=== PATIENT | female | born 1950 | race Caucasian/White ===

== ENCOUNTER → 2016-08-24 | Outpatient (CLI) | payer OTHER ==
--- NOTE | 2016-08-24 20:26 | WWHP ---
CHIEF COMPLAINT: Patient is here for her routine gynecologic exam. HPI: This is a 66-year-old, G2, P2-0-0-1 with an LMP of 1994. She states she did notice a small amount of vaginal spotting 2 weeks ago. She states it was a very thin red streaking on tissue when she wiped. She states she has not had any more bleeding since then. She believes it was from the vagina and not from the rectum. She denies any rectal bleeding. She says this was not associated with sexual intercourse and she did not have any cramping. 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 History of thrombocytopenia. MEDICATIONS: She takes a blood pressure medication b.i.d. but she does not know the name of the medication. Also Chauvin b.i.d., morphine 15 mg q.h.s. ALLERGIES: No known drug allergies. PAST SURGICAL HISTORY: section x2. Femur surgery after a fall in 2011 and colonoscopy 2009. PAST SENIOR PASTOR HISTORY: She has been menopausal since 1994 and has no history of STDs in the past. SOCIAL HISTORY: She denies tobacco and drug use. She does have a history of alcohol abuse in the past with resulting cirrhosis. She states she quit many years ago. She is considered disabled and has been since 1971. FAMILY HISTORY: Daughter had a neuroblastoma at age 8 and from this. She has a sister who had breast cancer. Father had diabetes. Mother had atrial fibrillation and hypertension. REVIEW OF SYSTEMS: She has gained about 14 pounds over the last 3 years. She denies respiratory, cardiac, or GI problems. PHYSICAL EXAM: Blood pressure 156/79. Height 5 feet 8-1/2 inches. Weight 150 pounds. Temperature 98.2, pulse 73. This is a well-developed, well-nourished white female who is alert and oriented x3 in no acute distress. HEENT is within normal limits. NECK: Supple without mass or thyromegaly. CHEST AND LUNGS: Clear to auscultation. HEART: Regular rate and rhythm. Breasts are without mass or discharge. Axillary exam is negative for adenopathy. BACK: Negative for CVA tenderness. ABDOMEN: Soft, nontender, without palpable masses. PELVIC EXAM: External genitalia reveals mild to moderate atrophy without lesions. Vagina, there is a small amount of dark yellow mucus in the vagina. There is no odor noted. There is no evidence of prolapse. The cervix appears normal, but somewhat stenotic secondary to atrophy. The uterus is midposition small, nongravid size and nontender. There are no palpable adnexal masses or tenderness. Rectovaginal exam is negative for mass or tenderness but is Hemoccult-positive. The stool does appear somewhat dark. EXTREMITIES: Nontender. IMPRESSION: 1. A 66-year-old menopausal female with a small amount of brief spotting 2 weeks ago from the vagina with no significant physical findings at this time. She has had no bleeding since then. 2. Heme positive stools on exam today. PLAN: 1. Pap smear was performed. 2. Self breast examination was discussed. 3. Patient is due for mammogram and a slip was given to patient for this. 4. Pelvic ultrasound will be scheduled to further evaluate her small postmenopausal spotting. If thickened endometrium or recurrence of her vaginal bleeding consider endometrial sampling of tissue. 5. The patient will be referred to Dr. Dorian Menendez, her general surgeon, for evaluation of the heme-positive stool and possible colonoscopy and possible upper endoscopy. 6. She will return in one year.
== END | disposition home or self-care (01) ==
LOC: WWCWWP 11:32
PROVIDERS: ATTEND Obstetrics & Gynecology
DX: Z53.9 Procedure and treatment not carried out, unspecified reason (principal)

== ENCOUNTER 2019-01-05 17:44 | Emergency (ER) | payer MEDICARE, OTHER ==
[2019-01-05 18:00] VITALS: BP 156/78; PULSE 76; RESP 18; TEMP 97.8
[2019-01-05] MEDS ORDERED: HYDROcodone/APAP 5-325MG 1 EACH TAB PO STA (18:06)
--- NOTE | 2019-01-05 18:22 | ED ---
Upper Extremity HPI - General Chief Complaint: Extremity Injury, Upper Stated Complaint: rt elbow injury Time Seen by Provider: 01/05/19 18:00 Source: patient, RN notes reviewed, old records reviewed Mode of arrival: ambulatory Limitations: physical limitation - History of Present Illness Initial Comments: This is a 68-year-old female complaining of significant right elbow pain. Patient had right elbow injury right elbow on the door frame. Patient states she just walking no other issues. Patient just complaining of pain. Patient denies any other trauma. No significant neurological injury. Able to move her hand without difficulty. She states it is painful when she moves her elbow through range of motion both extension and flexion Complaint: Injury to:: right, elbow -: minutes(s) Other Extremity Injury: Elbow: Right Handedness: right Place: home Severity scale (1-10): 2 Improves With: none Worsens With: none Associated Symptoms: denies other symptoms - Related Data Home Medications Medication Instructions Recorded Confirmed HYDROcodone/APAP 10-325MG [Gillett 1 tab PO Q6H PRN 04/28/14 02/02/16 10] Montelukast [Singulair] 10 mg PO HS 04/28/14 02/02/16 Promethazine [Phenergan] 25 mg PO BID PRN 04/28/14 02/02/16 Bisoprolol-Hctz 5-6.25 mg [Ziac 1 tab PO DAILY 02/02/16 02/02/16 5-6.25] Docusate [Colace] 100 mg PO DAILY 02/02/16 02/02/16 Allergies Allergy/AdvReac Type Severity Reaction Status Date / Time No Known Allergies Allergy Verified 01/05/19 18:00 Review of Systems ROS Statement: Those systems with pertinent positive or pertinent negative responses have been documented in the HPI. ROS Other: All systems not noted in ROS Statement are negative. Past Medical History Past Medical History: Cancer, Hypertension, Liver Disease, Musculoskeletal Disorder Additional Past Medical History / Comment(s): HX OF CIRRHOSIS, ASCITES, CHRONIC BACK PAIN, SINUS PROBLEMS. STATES BLOOD COUNTS LOW DUE TO CIRRHOSIS. VERTIGO. BREAST CA. History of Any Multi-Drug Resistant Organisms: None Reported Past Surgical History: Section, Orthopedic Surgery Additional Past Surgical History / Comment(s): X2, SURGERY RT FEMUR WITH HARDWARE. Past Anesthesia/Blood Transfusion Reactions: No Reported Reaction, Motion Sickness Past Psychological History: No Psychological Hx Reported Smoking Status: Never smoker Past Alcohol Use History: None Reported Past Drug Use History: None Reported - Past Family History Sister(s) Family Medical History: Cancer Additional Family Medical History / Comment(s): BREAST CANCER Daughter(s) Family Medical History: Cancer Additional Family Medical History / Comment(s): NEOBLASTOMA General Exam Limitations: physical limitation General appearance: alert, in no apparent distress Head exam: Present: atraumatic, normocephalic, normal inspection Eye exam: Present: normal appearance, PERRL, EOMI. Absent: scleral icterus, conjunctival injection, periorbital swelling ENT exam: Present: normal exam, mucous membranes moist Neck exam: Present: normal inspection. Absent: tenderness, meningismus, lymphadenopathy Respiratory exam: Present: normal lung sounds bilaterally. Absent: respiratory distress, wheezes, rales, rhonchi, stridor Cardiovascular Exam: Present: regular rate, normal rhythm, normal heart sounds. Absent: systolic murmur, diastolic murmur, rubs, gallop, clicks GI/Abdominal exam: Present: soft, normal bowel sounds. Absent: distended, tenderness, guarding, rebound, rigid Extremities exam: Present: normal inspection, full ROM, tenderness (R elbow pain, dec ROM), normal capillary refill. Absent: pedal edema, joint swelling, calf tenderness Back exam: Present: normal inspection Neurological exam: Present: alert, oriented X3, CN II-XII intact Psychiatric exam: Present: normal affect, normal mood Skin exam: Present: warm, dry, intact, normal color. Absent: rash Course Vital Signs 01/05/19 17:58 Temperature 97.8 F Pulse Rate 76 Respiratory 18 Rate Blood Pressure 156/78 O2 Sat by Pulse 95 Oximetry - Reevaluation(s) Reevaluation #1: 01/05/19 19:08 Medical records reviewed Reevaluation #2: 01/05/19 19:08 Patient has adequate pain control Procedures - Orthopedic Splinting/Casting Injury #1 Side: right Upper Extremity Injury Location: elbow Upper Extremity Immobilizer: sling/shoulder immobilizer, posterior splint Medical Decision Making - Medical Decision Making 68 female who presents today for evaluation of right elbow pain positive right elbow fracture fractures splinted in sling. Patient can be discharged home - Radiology Data Radiology results: report reviewed (X-ray shows nondisplaced radial head fracture), image reviewed Disposition Clinical Impression: Elbow fracture, right Disposition: HOME SELF-CARE Condition: Good Instructions (If sedation given, give patient instructions): Elbow Fracture (ED) Is patient prescribed a controlled substance at d/c from ED?: No Referrals: Jhonatan Katz MD [Primary Care Provider] - 1-2 days
--- NOTE | 2019-01-05 18:50 | XR ---
EXAMINATION TYPE: XR elbow complete RT DATE OF EXAM: 01/05/2019 COMPARISON: None HISTORY: Pain TECHNIQUE: Three-view right elbow FINDINGS: There is elevation of the anterior and posterior fat pads. A radial head fracture is eviden t. The olecranon and humerus have normal orientation. Radius aligns normally with the humerus. IMPRESSION: 1. Nondisplaced fracture radial head with intra-articular extension. This appears to cross the super ior border of the radial head.
== END 2019-01-05 19:18 | disposition home or self-care (01) ==
LOC: EC 17:44
DX: S52.124A Nondisplaced fracture of head of right radius, initial encounter for closed fracture (principal); G89.29 Other chronic pain; M54.9 Dorsalgia, unspecified; K74.60 Unspecified cirrhosis of liver; I10 Essential (primary) hypertension; Z79.899 Other long term (current) drug therapy; Z85.3 Personal history of malignant neoplasm of breast; W22.09XA Striking against other stationary object, initial encounter; Y93.89 Activity, other specified
CPT/HCPCS: 29105; 99284

== ENCOUNTER → 2021-06-14 | Outpatient (CLI) | payer MEDICARE, OTHER ==
--- NOTE | 2021-06-15 10:47 | MM ---
Reason for exam: screening (asymptomatic). Last mammogram was performed 6 years and 4 months ago. History: Patient is postmenopausal and has history of bilateral breast cancer at age 62. Family history of breast cancer in sister at age 50. Benign MG pre op needle loc RT of the right breast, April 30, 2014. Malignant right breast needle localzation of both breasts, July 11, 2012. Benign right breast needle localzation of both breasts, December 23, 2011. Cancelled Right Mammotome of the right breast, December 19, 2011. Benign excisional biopsy of the right breast, 1979. Physical Findings: A clinical breast exam by your physician is recommended on an annual basis and results should be correlated with mammographic findings. MG 3D Screening Mammo W/Cad Bilateral CC and MLO view(s) were taken. Prior study comparison: February 11, 2015, bilateral MG 3d diag mammo w/cad BRIGID. December 11, 2014, right breast MG diagnostic mammo RT w CAD. Finding: There are typically benign new, fine, grouped/clustered calcifications in the left breast, 9cm from the nipple. New finding since February 11, 2015 and December 11, 2014. ASSESSMENT: Incomplete: need additional imaging evaluation, BI-RAD 0 RECOMMENDATION: Special view mammogram of the left breast. [facility] will attempt to contact patient to return for supplemental views.
== END | disposition home or self-care (01) ==
LOC: RADMAMWWP 14:02
PROVIDERS: ATTEND Family Medicine
DX: Z12.31 Encounter for screening mammogram for malignant neoplasm of breast (principal); Z78.0 Asymptomatic menopausal state; Z80.3 Family history of malignant neoplasm of breast
CPT/HCPCS: 77063; 77067

== ENCOUNTER → 2021-07-05 | Day surgery (SDC) | payer MEDICARE, OTHER ==
--- NOTE | 2021-07-05 15:47 | MM ---
EXAMINATION TYPE: MG stereo VAD BX LT DATE OF EXAM: 07/05/2021 COMPARISON: NONE CLINICAL HISTORY: Abnormal mammogram, calcifications TECHNIQUE: Stereotactic guided core biopsy of left breast. FINDINGS: The procedure of stereotactic guided core biopsy was explained to the patient. Benefits, alternatives, and risks were discussed. An informed consent was then obtained. The shortness pathway for biopsy was chosen. Shortness pathway was superior approach. Targeting was provided by radiology. The procedure was performed by radiology. Skin was anesthetized 1% lidocaine. Deeper breast tissue was anesthetized with 1% lidocaine with sodium bicarbonate. A vacuum assisted biopsy gun was used to obtain 6 core samples. There is deployment of a core marker. However device appears to have retracted the core marker with withdrawing the sheath for marker placement confirmation. The sheath was readvanced into biopsy position and a second type of core marker was placed. This appears to have deployed both markers in the process. The barbell type marker appears to be in the correct position postbiopsy. Patient was notified of deployment of the 2 core markers at the biopsy site. The patient tolerated the procedure well without any immediate complication. The patient was kept in the radiology department for short stay after the procedure and then discharged home in stable condition. Specimen: Targeted calcifications are identified in specimen mammogram. Post procedure mammogram: Post biopsy mammogram shows the second clip to appear in satisfactory position relative to the targeted area of concern on the preprocedure images. IMPRESSION: 1. Successful serotactic core biopsy left breast calcifications.. Recommendations: 1. Recommendations are pending pathology results. Pathology Results: Benign LEFT BREAST, CORE BIOPSY: Fibrosis with fibrocystic change, columnar cell change with microcalcification and focal sclerosing adenosis. Negative for in situ or invasive malignancy. Recommendation Follow up mammogram of the left breast in 6 months. SOHEILA
== END ==
LOC: RADMAMWWP 12:28
PROVIDERS: ATTEND Surgery
DX: N60.12 Diffuse cystic mastopathy of left breast (principal); N60.22 Fibroadenosis of left breast
CPT/HCPCS: 19081; 88305; A4648

== ENCOUNTER → 2021-07-23 | Outpatient (CLI) | payer MEDICARE, OTHER ==
--- NOTE | 2021-07-23 15:07 | MR ---
EXAMINATION TYPE: MR shoulder RT wo con DATE OF EXAM: 07/23/2021 2:00 PM COMPARISON: NONE HISTORY: PAIN IN RIGHT SHOULDER TECHNIQUE: Multiplanar multispin echo imaging of the right shoulder was performed. FINDINGS: Rotator cuff : There is thickening and heterogeneity of the supraspinatus tendon compatible chronic t endinopathy. High-grade partial tear at the insertion site of the supraspinatus tendon with a few fib ers remaining intact. The remaining constituents of the rotator cuff are intact. Bursa: Small amount of fluid within the subacromial subdeltoid bursa. Musculature: There is no muscular tear, contusion, or atrophy. Acromioclavicular joint : Moderate AC joint arthropathy. Lateral downsloping and subacromial spurring resulting in moderately severe impingement. Fluid noted underneath the AC joint measuring 2.9 x 1.0 cm. Osseous structures : Subchondral sclerosis humeral head and glenoid spur formation about the humeral head. Long biceps tendon : The biceps tendon is normally situated within the bicipital groove. No com plete or partial biceps tendon tear is present. Glenohumeral Joint fluid : There is no glenohumeral joint effusion. Cartilage and Bone : No focal hyaline cartilage defects are noted. No Hill-Sachs, reverse Hill-Sachs, or bony Bankart lesions are seen. Labrum : Diminutive anterior superior glenoid labrum may reflect tear. OTHER FINDINGS : none IMPRESSION: 1. There is thickening and heterogeneity of the supraspinatus tendon compatible chronic tendinopathy. High-grade partial tear at the insertion site of the supraspinatus tendon with a few fibers remainin g intact. 2. Moderately severe impingement. 3.Diminutive anterior superior glenoid labrum may reflect tear.
== END | disposition home or self-care (01) ==
LOC: RADMRIMAIN 13:19
PROVIDERS: ATTEND Orthopaedic Surgery
DX: M75.111 Incomplete rotator cuff tear or rupture of right shoulder, not specified as traumatic (principal); M75.41 Impingement syndrome of right shoulder

== ENCOUNTER 2021-09-02 07:44 | Day surgery (SDC) | payer MEDICARE, OTHER ==
[2021-08-31 15:53] VITALS: BMI 24.7
--- NOTE | 2021-09-01 15:43 | HP ---
HISTORY AND PHYSICAL REASON FOR ADMISSION: Surgery scheduled for 09/02/2021. HISTORY OF PRESENT ILLNESS: Darlene Bravo is a 71-year-old patient seen with progressive right shoulder pain. We discussed options for treatment. She elected to proceed with right shoulder arthroscopy. Consent obtained. PAST MEDICAL HISTORY: Hypertension, hyperlipidemia, gastroesophageal reflux disease. PAST SURGICAL HISTORY: section, femur fracture surgery. MEDICATIONS: Hydrocodone, lisinopril, metoprolol, morphine, simvastatin. ALLERGIES: None. SOCIAL HISTORY: She denies current tobacco use. PHYSICAL EVALUATION OF THE RIGHT SHOULDER: Flexion is 110 degrees, abduction is 90 degrees, external rotation is 30 degrees with pain and weakness. Tenderness along the anterolateral acromion and rotator cuff insertion site. Impingement positive at 90. Drop-arm sign is positive. Distal neurovascular exam is intact. RADIOGRAPHS: Radiographs of the right shoulder revealed a type 2 acromion, evidence for acromioclavicular joint osteoarthritis and cystic changes of the tuberosity. MRI right shoulder revealed a rotator cuff tendon tear, severe impingement, acromioclavicular joint osteoarthritis and possible labral tear. IMPRESSION: 1. Right shoulder impingement with rotator cuff tear. 2. Right shoulder acromioclavicular joint osteoarthritis. 3. Hypertension. 4. Hyperlipidemia. PLAN: Right shoulder arthroscopy, subacromial decompression, arthroscopic rotator cuff repair, arthroscopic Konstantin procedure and debridement. Surgery scheduled for 09/02/2021. MMODL / IJN: [id number] /
[~2021-09-02 07:44] MED LIST: DEXAMETHASONE SOD PHOSPHATE 4 MG/ML 1 ML VIAL IV ONE; LACTATED RINGERS 1,000 ML IV SCH; ONDANSETRON 4 MG/2 ML VIAL IVP ONE
[2021-09-02 08:07] VITALS: TEMP 98.3
[2021-09-02] MEDS ORDERED: HYDROmorphone (PF) 1 MG/ML ONE (08:27)
[2021-09-02] MEDS ORDERED: fentaNYL (PF) 50 MCG/ML 2 ML AMP ONE (08:27)
[2021-09-02] MEDS ORDERED: PROPOFOL 10 MG/ML 20 ML VIAL IV ONE (08:27)
[2021-09-02] MEDS ORDERED: MIDAZOLAM 2 MG/2 ML VIAL ONE (08:27)
[2021-09-02] MEDS ORDERED: LIDOCAINE 2% INJ 20 MG/ML (2 ML VIAL) ONE (08:27)
[2021-09-02] MEDS ORDERED: ROCURONIUM 10 MG/ML (5 ML VIAL) IV ONE (08:27)
[2021-09-02] MEDS ORDERED: hydrALAZINE HCL 20 MG/ML 1 ML VIAL ONE (08:27)
[2021-09-02] MEDS ORDERED: NEOSTIGMINE 1 MG/ML 10 ML VIAL ONE (08:27)
[2021-09-02] MEDS ORDERED: GLYCOPYRROLATE 0.2 MG/ML 2 ML VIAL ONE (08:27)
[2021-09-02] MEDS ORDERED: SUCCINYLCHOLINE CHLORIDE 100 MG/5 ML SYR IV ONE (08:27)
[2021-09-02 08:33] LABS: HCT 31.9 % (34.0-46.0); HGB 10.4 gm/dL (11.4-16.0); Hypochromasia Moderate; MCH 28.8 pg (25.0-35.0); MCHC 32.4 g/dL (31.0-37.0); MCV 88.7 fL (80.0-100.0); Mean Platelet Volume 11.7; RDW 14.5 % (11.5-15.5); WBC 3.1 k/uL (3.8-10.6)
[2021-09-02 09:10] LABS: Platelet Count 47 k/uL (150-450)
[2021-09-02 10:30] VITALS: RESP 16
--- NOTE | 2021-09-02 10:30 | P.OP ---
Date of Procedure: 09/02/21 Preoperative Diagnosis: Right shoulder impingement Postoperative Diagnosis: 1. Right shoulder rotator cuff tear 2. Right shoulder impingement Procedure(s) Performed: 1. Right shoulder arthroscopic rotator cuff repair 2. Right shoulder arthroscopic subacromial decompression Implants: 16.25 Arthrex a lock anchor Allograft bone dowel Anesthesia: MARGO Surgeon: Steve Ram Bunch Breaker #1: Yrn Pizarro Estimated Blood Loss (ml): 11 Pathology: none sent Condition: stable Disposition: PACU Indications for Procedure: 71-year-old patient seen with progressive right shoulder pain. After having treatment options discussed, she elected to proceed with arthroscopy. Operative Findings: See description of procedure Description of Procedure: Patient underwent an interscalene block by department of anesthesia. The patient was then taken to the operative suite. The patient underwent a general anesthetic by the department of anesthesia. The patient was placed into a lateral position and secured. There was appropriate padding of the bony prominence. Right shoulder was then prepped and draped in normal sterile orthopedic fashion. We placed the extremity in 10 pounds of longitudinal traction. A posterior incision was now made for a posterior working portal site. The trocar and cannula were inserted into the glenohumeral joint. Arthroscopy was initiated. Spinal needle was now inserted anteriorly, to ascertain the anterior working portal site. An incision was now made in that area, a trocar was inserted followed by a probe. There were grade 2/3 chondromalacia changes throughout the humeral head and glenoid fossa. The labrum was somewhat diminutive but no tears were present. Long head biceps tendon was stable. Instruments now removed from the humeral joint. Utilizing the posterior working portal site, the trocar and cannula were inserted into the subacromial space. Arthroscopy initiated. I made an incision 2 fingerbreadths lateral to the acromion. I introduced my trocar followed by my ArthroCare ablator. I now began ablating thick subacromial bursal tissue, which exposed the undersurface of the anterior acromion. There was diminished subacromial space. There was a very prominent anterior acromion. A motorized bur was introduced and a subacromial decompression was performed. I also excised some osteophytes off the inferior aspect of the distal clavicle. The AC joint was visualized and noted to be moderately arthritic, I did not think enough toward a Konstantin procedure. I now turned my attention to the rotator cuff tendon. There was a 2 cm tear along the distal supraspinatus. I debrided the margins getting down to stable tendon tissue. I let we abraded the footprint with a motorized bur. With the assistance of Angel FLETCHER past 3 everted mattress suture through good bites of rotator cuff tendon. We now placed a hole the footprint area for insertion anchor. The bone seemed very soft. We chose a 5.5 Arthrex swivel lock anchor. All 6 suture limbs were passed through the eyelet and then the eyelet introduced into the pre-punch hole. I held in position while Angel FLETCHER deployed the anchor. The anchor did not have good fixation at all. The bone was exceptionally soft. The anchor was removed. I now obtained allograft bone and informed into a dowel. I now passed that dowel into the soft bony defect. I now chose a Arthrex 6.25 swivel lock anchor. All 6 limbs of suture were passed through the eyelet. I placed into that bony defect/hole. I held in position while Angel FLETCHER now deployed the anchor with reasonable fixation. Residual suture limbs were clipped. The anchor was probably a few millimeters below we had good fixation. At this point we had good coverage over the footprint. Instruments now removed from the portal sites. All portal sites were approximated with nylon suture. Sterile dressings were applied followed by a shoulder immobilizer. Yrn FLETCHER assisted in this complex case. The patient was awakened, transferred to a bed, and taken to recovery in stable condition. The patient's prognosis remains guarded given the quality of the bone.
[2021-09-02] MEDS ORDERED: HYDROmorphone 0.5 MG/0.5 ML SYRINGE IVP ONE ×2 (10:47→10:57)
[2021-09-02] MEDS ORDERED: KETOROLAC 15 MG/ML 1 ML VIAL IVP ONE (11:10)
[2021-09-02 11:46] VITALS: BP 144/76; PULSE 66
== END 2021-09-02 12:22 | disposition home or self-care (01) ==
LOC: OR 07:44
PROVIDERS: ATTEND Orthopaedic Surgery
DX: M75.101 Unspecified rotator cuff tear or rupture of right shoulder, not specified as traumatic (principal); M19.011 Primary osteoarthritis, right shoulder; M25.811 Other specified joint disorders, right shoulder; I10 Essential (primary) hypertension; E78.5 Hyperlipidemia, unspecified; K21.9 Gastro-esophageal reflux disease without esophagitis; Z98.891 History of uterine scar from previous surgery; Z98.890 Other specified postprocedural states; Z87.81 Personal history of (healed) traumatic fracture; I69.351 Hemiplegia and hemiparesis following cerebral infarction affecting right dominant side; Z97.2 Presence of dental prosthetic device (complete) (partial); K74.60 Unspecified cirrhosis of liver; Z79.891 Long term (current) use of opiate analgesic; Z79.899 Other long term (current) drug therapy
CPT/HCPCS: 85027; 29826; 29827; C1713; J2250; J0360; J1100; J2710; J2405; J0690; J3010; J1170 ×2; J1885; J0330; J2704; J2001

== ENCOUNTER 2021-09-29 16:57 | Inpatient (IN) | payer MEDICARE, OTHER ==
--- NOTE | 2021-09-29 18:17 | ED ---
General Adult HPI - General Chief complaint: Shortness of Breath Stated complaint: SOB Time Seen by Provider: 09/29/21 17:35 Source: patient, RN notes reviewed, old records reviewed Mode of arrival: ambulatory Limitations: no limitations - History of Present Illness Initial comments: This is a 18-year-old female presents emergency Department complaining shortness of breath over the last 3 weeks. Patient states she had shoulder surgery about a month ago and since then she's slowly had worsening shortness of breath. Patient states the last 2 days she's had swelling in both legs particularly the left leg. Patient denies any calf tenderness. Patient denies any chest pain but she does note that his more more difficult to breathe. Patient denies any wheezing. Patient denies a cough patient denies fever or chills. Patient denies any palpitation. Patient denies abdominal pain patient denies nausea vomiting diarrhea. - Related Data Home Medications Medication Instructions Recorded Confirmed Promethazine [Phenergan] 25 mg PO QAM PRN 04/28/14 09/02/21 Morphine Sulfate 15 mg PO BID PRN 06/24/21 09/02/21 HYDROcodone/APAP 7.5-325MG [[place] 2 tab PO BID PRN 08/31/21 09/02/21 7.5-325] Metoprolol Tartrate [Lopressor] 25 mg PO HS 08/31/21 09/02/21 Metoprolol Tartrate [Lopressor] 50 mg PO QAM 08/31/21 09/02/21 Multivitamins, Thera [Multivitamin 1 tab PO DAILY 08/31/21 09/02/21 (formulary)] Pantoprazole [Protonix] 40 mg PO DAILY 08/31/21 09/02/21 Simvastatin [Zocor] 10 mg PO DAILY 08/31/21 09/02/21 lisinopriL [Zestril] 10 mg PO HS 08/31/21 09/02/21 Allergies Allergy/AdvReac Type Severity Reaction Status Date / Time No Known Allergies Allergy Verified 09/29/21 17:24 Review of Systems ROS Statement: Those systems with pertinent positive or pertinent negative responses have been documented in the HPI. ROS Other: All systems not noted in ROS Statement are negative. Past Medical History Past Medical History: Hypertension, Liver Disease, Musculoskeletal Disorder Additional Past Medical History / Comment(s): HX OF CIRRHOSIS dx 2002 ASCITES, CHRONIC BACK PAIN, SINUS PROBLEMS. STATES BLOOD COUNTS LOW DUE TO CIRRHOSIS. VERTIGO. History of Any Multi-Drug Resistant Organisms: None Reported Past Surgical History: Section, Orthopedic Surgery Additional Past Surgical History / Comment(s): X2, SURGERY RT FEMUR WITH HARDWARE. Right femur repair Past Anesthesia/Blood Transfusion Reactions: No Reported Reaction, Motion Sickness Past Psychological History: No Psychological Hx Reported Smoking Status: Never smoker Past Alcohol Use History: None Reported Past Drug Use History: None Reported - Past Family History Sister(s) Family Medical History: Cancer Daughter(s) Family Medical History: Cancer General Exam - General Exam Comments Initial Comments: GENERAL: Patient is well-developed and well-nourished. Patient is nontoxic and well- hydrated and is in no acute distress. ENT: Neck is soft and supple. No significant lymphadenopathy is noted. Oropharynx is clear. Moist mucous membranes. Neck has full range of motion without el iciting any pain. EYES: The sclera were anicteric and conjunctiva were pink and moist. Extraocular movements were intact and pupils were equal round and reactive to light. Eyelids were unremarkable. PULMONARY: Unlabored respirations. Slight decreased breath sounds on the right compared to the left no wheezing no rhonchi or crackles CARDIOVASCULAR: Patient is tachycardic and irregularly 140 beats minute ABDOMEN: Soft and nontender with normal bowel sounds. SKIN: Skin is clear with no lesions or rashes and otherwise unremarkable. NEUROLOGIC: Patient is alert and oriented x3. Cranial nerves II through XII are grossly intact. Motor and sensory are also intact. Normal speech, volume and content. Symmetrical smile. MUSCULOSKELETAL: Normal extremities with adequate strength and full range of motion. 1+ edema bilaterally tenderness LYMPHATICS: No significant lymphadenopathy is noted PSYCHIATRIC: Normal psychiatric evaluation. Limitations: no limitations Course Vital Signs 09/29/21 09/29/21 09/29/21 17:22 18:13 19:48 Temperature 98.3 F Pulse Rate 111 H 133 H Pulse Rate [ Flask Carrier ] Respiratory 18 Rate Blood Pressure 101/70 115/87 O2 Sat by Pulse 98 98 Oximetry 09/29/21 20:00 Temperature Pulse Rate Pulse Rate [ 112 H Flask Carrier ] Respiratory Rate Blood Pressure O2 Sat by Pulse Oximetry Medical Decision Making - Medical Decision Making EKG shows atrial fibrillation with rapid ventricular response at 146 beats a minute QRS is 88 QT interval 390 QTC is 392. Patient's EKG shows no ST segment elevation or depression. He knew. Patient is new-onset atrial fibrillation I started the patient on a Cardizem drip. I spoke with Dr. Katz he agreed to admit the patient admitted the patient wrote admitting orders. I continued Cardizem on the floor. CT of the chest was done because the d-dimer is elevated did not show a PE however so some pulmonary edema - Lab Data Result diagrams: 09/29/21 18:36 09/29/21 18:36 Lab Results 09/29/21 09/29/21 09/29/21 Range/Units 18:36 18:36 18:36 WBC 5.1 (3.8-10.6) k/uL RBC 3.91 (3.80-5.40) m/uL Hgb 10.0 L (11.4-16.0) gm/dL Hct 33.3 L (34.0-46.0) % MCV 85.2 (80.0-100.0) fL MCH 25.7 (25.0-35.0) pg MCHC 30.1 L (31.0-37.0) g/dL RDW 14.5 (11.5-15.5) % Plt Count 90 L D (150-450) k/uL MPV 11.1 Neutrophils % 70 % Lymphocytes % 21 % Monocytes % 6 % Eosinophils % 2 % Basophils % 1 % Neutrophils # 3.6 (1.3-7.7) k/uL Lymphocytes # 1.1 (1.0-4.8) k/uL Monocytes # 0.3 (0-1.0) k/uL Eosinophils # 0.1 (0-0.7) k/uL Basophils # 0.0 (0-0.2) k/uL Manual Slide Review Performed Hypochromasia Marked Poikilocytosis Slight Anisocytosis (manual) Present PT 12.5 H (9.0-12.0) sec INR 1.2 H (<1.2) APTT 24.6 (22.0-30.0) sec D-Dimer 1.99 H (<0.60) mg/L FEU Sodium 138 (137-145) mmol/L Potassium 3.2 L (3.5-5.1) mmol/L Chloride 98 (98-107) mmol/L Carbon Dioxide 29 (22-30) mmol/L Anion Gap 11 mmol/L BUN 11 (7-17) mg/dL Creatinine 0.71 (0.52-1.04) mg/dL Est GFR (CKD-EPI)AfAm >90 (>60 ml/min/1.73 sqM) Est GFR (CKD-EPI)NonAf 88 (>60 ml/min/1.73 sqM) Glucose 105 H (74-99) mg/dL Plasma Lactic Acid Renzo (0.7-2.0) mmol/L Calcium 9.6 (8.4-10.2) mg/dL Magnesium 1.6 (1.6-2.3) mg/dL Total Bilirubin 1.0 (0.2-1.3) mg/dL AST 34 (14-36) U/L ALT 16 (4-34) U/L Alkaline Phosphatase 69 (38-126) U/L Troponin I (0.000-0.034) ng/mL NT-Pro-B Natriuret Pep pg/mL Total Protein 7.4 (6.3-8.2) g/dL Albumin 4.7 (3.5-5.0) g/dL 09/29/21 09/29/21 09/29/21 Range/Units 18:36 18:36 18:36 WBC (3.8-10.6) k/uL RBC (3.80-5.40) m/uL Hgb (11.4-16.0) gm/dL Hct (34.0-46.0) % MCV (80.0-100.0) fL MCH (25.0-35.0) pg MCHC (31.0-37.0) g/dL RDW (11.5-15.5) % Plt Count (150-450) k/uL MPV Neutrophils % % Lymphocytes % % Monocytes % % Eosinophils % % Basophils % % Neutrophils # (1.3-7.7) k/uL Lymphocytes # (1.0-4.8) k/uL Monocytes # (0-1.0) k/uL Eosinophils # (0-0.7) k/uL Basophils # (0-0.2) k/uL Manual Slide Review Hypochromasia Poikilocytosis Anisocytosis (manual) PT (9.0-12.0) sec INR (<1.2) APTT (22.0-30.0) sec D-Dimer (<0.60) mg/L FEU Sodium (137-145) mmol/L Potassium (3.5-5.1) mmol/L Chloride (98-107) mmol/L Carbon Dioxide (22-30) mmol/L Anion Gap mmol/L BUN (7-17) mg/dL Creatinine (0.52-1.04) mg/dL Est GFR (CKD-EPI)AfAm (>60 ml/min/1.73 sqM) Est GFR (CKD-EPI)NonAf (>60 ml/min/1.73 sqM) Glucose (74-99) mg/dL Plasma Lactic Acid Renzo 1.1 (0.7-2.0) mmol/L Calcium (8.4-10.2) mg/dL Magnesium (1.6-2.3) mg/dL Total Bilirubin (0.2-1.3) mg/dL AST (14-36) U/L ALT (4-34) U/L Alkaline Phosphatase (38-126) U/L Troponin I <0.012 (0.000-0.034) ng/mL NT-Pro-B Natriuret Pep 1970 pg/mL Total Protein (6.3-8.2) g/dL Albumin (3.5-5.0) g/dL Critical Care Time Critical Care Time: Yes Total Critical Care Time: 35 Disposition Clinical Impression: New onset a-fib Disposition: ADMITTED IP TO THIS [facility] Time of Disposition: 20:15
[2021-09-29 18:41] LABS: Basophils % (A) 1 %; Eosinophils # (A) 0.1 k/uL (0-0.7); Eosinophils % (A) 2 %; HCT 33.3 % (34.0-46.0); Hypochromasia Marked; Lymphocytes # (A) 1.1 k/uL (1.0-4.8); Lymphocytes % (A) 21 %; MCH 25.7 pg (25.0-35.0); MCHC 30.1 g/dL (31.0-37.0); MCV 85.2 fL (80.0-100.0); Mean Platelet Volume 11.1; Monocytes # (A) 0.3 k/uL (0-1.0); Monocytes % (A) 6 %; Neutrophils # (A) 3.6 k/uL (1.3-7.7); Neutrophils % (A) 70 %; Poikilocytosis Slight; RBC 3.91 m/uL (3.80-5.40); RDW 14.5 % (11.5-15.5); WBC 5.1 k/uL (3.8-10.6)
[2021-09-29 18:56] LABS: ALT 16 U/L (4-34); AST 34 U/L (14-36); African American GFR (CKD) >90 (>60 ml/min/1.73 sqM); Albumin 4.7 g/dL (3.5-5.0); Alkaline Phosphatase 69 U/L (38-126); Anion Gap 11 mmol/L; Blood Urea Nitrogen 11 mg/dL (7-17); Calcium 9.6 mg/dL (8.4-10.2); Carbon Dioxide 29 mmol/L (22-30); Chloride 98 mmol/L (98-107); Glucose 105 mg/dL (74-99); Magnesium 1.6 mg/dL (1.6-2.3); Non-African American GFR(CKD) 88 (>60 ml/min/1.73 sqM); Potassium 3.2 mmol/L (3.5-5.1); Sodium 138 mmol/L (137-145); Total Protein 7.4 g/dL (6.3-8.2)
[2021-09-29 18:59] LABS: INR 1.2 (<1.2); Partial Thromboplastin Time 24.6 sec (22.0-30.0); Prothrombin Time 12.5 sec (9.0-12.0)
[2021-09-29] MEDS ORDERED: SODIUM CHLORIDE 0.9% 1,000 ML IV ONE (19:06)
[2021-09-29 19:15] LABS: Platelet Count 90 k/uL (150-450)
[2021-09-29 19:16] LABS: Anisocytosis (M) Present
--- NOTE | 2021-09-29 19:33 | XR ---
EXAMINATION TYPE: XR chest 2V DATE OF EXAM: 09/29/2021 COMPARISON: 12/25/2021 HISTORY: Difficulty breathing TECHNIQUE: FINDINGS: There is some blunting of the costophrenic angles. There is mild pulmonary congestion. Hear t is top normal in size. There are some coarse interstitial density at the lung bases. IMPRESSION: Small pleural effusions with coarse interstitial density in the lower lung govea could b e some mild heart failure and appears new compared to the old exam.
--- NOTE | 2021-09-29 19:41 | CT ---
EXAMINATION TYPE: CT chest angio for PE DATE OF EXAM: 09/29/2021 COMPARISON: None HISTORY: elevated D-Dimer and SOB. CT DLP: 304.1 mGycm Automated exposure control for dose reduction was used. CONTRAST: Performed with IV Contrast, patient injected with 80 mL of Isovue 370. There are Three-D postprocessed images. There is moderate size right pleural effusion. There is small left pleural effusion. There is mild in terstitial density and subsegmental atelectasis at the lung bases. Heart is slightly enlarged. No per icardial effusion. There are a few paratracheal lymph nodes up to 1 cm. Thoracic aorta is intact. No dissection. Ascendi ng aorta measures 3.5 cm. There is normal contrast opacification of the pulmonary arteries. No filling defect. Pulmonary arteries are large. This is consistent with some degree of pulmonary hypertension. Thoracic spine appears intact. No compression fracture. There is a thoracic dextroscoliosis. Spleen i s enlarged and measures at least 16 cm. IMPRESSION: No evidence of pulmonary embolism. Cardiomegaly with pleural effusions likely related to some congest jamil heart failure. There are some interstitial infiltrates and atelectasis at the lung bases. No susp icious pulmonary mass. Splenomegaly. Liver is irregular and consistent with cirrhosis. There is likely abdominal ascites.
[2021-09-29] MEDS: DILTIAZEM 125 MG in SODIUM CHLORIDE 0.9% 100 ML IV SCH (19:54)
[2021-09-29] MEDS ORDERED: HEPARIN SODIUM 1,000 UN/ML (10ML VL) IV ONE (20:13)
[2021-09-29] MEDS ORDERED: HEPARIN SOD,PORK IN 0.45% NACL 25,000 UNIT in 0.45% NACL 1 250ML.BAG IV SCH (20:15)
[2021-09-29] MEDS ORDERED: NITROGLYCERIN SL TABS 0.4 MG TAB SUBLINGUAL PRN (20:16)
[2021-09-30] MEDS: HYDROcodone/APAP 7.5-325MG 1 EACH TAB PO PRN ×2 (06:58→19:50)
[2021-09-30] MEDS ORDERED: PROMETHAZINE 25 MG TAB PO PRN (08:12)
--- NOTE | 2021-09-30 08:26 | P.HPIM ---
History of Present Illness Chief Complaint: New-onset atrial fibrillation The patient is 71-year-old white female with known history of cirrhosis and opiate dependence history of hypertension who stated yesterday she had significant edema of the lower extremities and dyspnea. Evaluation emergency room showed new onset atrial fibrillation and she is appropriately admitted. Cardizem has been started metoprolol and titrated. The patient is sitting comfortably and lucid. No significant shortness of breath now stated. No nausea, vomiting or diarrhea. No diaphoresis. Review of Systems Constitutional: Denies chills, Denies fever Eyes: denies blurred vision, denies pain Ears, nose, mouth and throat: Denies headache, Denies sore throat Cardiovascular: Reports as per HPI Respiratory: Denies cough Gastrointestinal: Denies abdominal pain, Denies diarrhea, Denies nausea, Denies vomiting Genitourinary: Denies dysuria, Denies hematuria Past Medical History Past Medical History: Hypertension, Liver Disease, Musculoskeletal Disorder Additional Past Medical History / Comment(s): HX OF CIRRHOSIS dx 2001 ASCITES, CHRONIC BACK PAIN, SINUS PROBLEMS. STATES BLOOD COUNTS LOW DUE TO CIRRHOSIS. VERTIGO. History of Any Multi-Drug Resistant Organisms: None Reported Past Surgical History: Section, Orthopedic Surgery Additional Past Surgical History / Comment(s): X2, SURGERY RT FEMUR WITH HARDWARE. Right femur repair Past Anesthesia/Blood Transfusion Reactions: No Reported Reaction, Motion Sickness Past Psychological History: No Psychological Hx Reported Smoking Status: Never smoker Past Alcohol Use History: None Reported Additional Past Alcohol Use History / Comment(s): HX OF ALCOHOL USE. Past Drug Use History: None Reported - Past Family History Sister(s) Family Medical History: Cancer Daughter(s) Family Medical History: Cancer Medications and Allergies Home Medications Medication Instructions Recorded Confirmed Type Promethazine [Phenergan] 25 mg PO BID PRN 04/28/14 09/29/21 History HYDROcodone/APAP 7.5-325MG [[place] 2 tab PO BID PRN 08/31/21 09/29/21 History 7.5-325] Metoprolol Tartrate [Lopressor] 25 mg PO HS 08/31/21 09/29/21 History Metoprolol Tartrate [Lopressor] 50 mg PO DAILY 08/31/21 09/29/21 History Multivitamins, Thera [Multivitamin 1 tab PO DAILY 08/31/21 09/29/21 History (formulary)] Pantoprazole [Protonix] 40 mg PO DAILY 08/31/21 09/29/21 History Simvastatin [Zocor] 10 mg PO DAILY 08/31/21 09/29/21 History Morphine Sulfate ER [Ms Contin] 15 mg PO TID PRN 09/29/21 09/29/21 History Allergies Allergy/AdvReac Type Severity Reaction Status Date / Time No Known Allergies Allergy Verified 09/29/21 21:10 Physical Exam Vitals: Vital Signs Temp Pulse Pulse Resp BP BP Pulse Ox 09/30/21 08:05 97.4 F L 126 H 20 123/73 91 L 09/30/21 04:00 97.5 F L 121 H 19 135/76 93 L 09/30/21 00:00 97.9 F 118 H 17 109/67 94 L 09/29/21 21:52 98.2 F 107 H 20 146/100 95 09/29/21 20:49 95 09/29/21 20:00 112 H 09/29/21 19:48 133 H 18 115/87 98 09/29/21 18:13 22 09/29/21 17:22 98.3 F 111 H 22 101/70 98 Intake and Output 09/29/21 09/30/21 09/30/21 22:59 06:59 14:59 Intake Total 360 241.083 Output Total 400 700 Balance -400 -340 241.083 Intake: Intake, IV Titration 40 61.083 Amount Diltiazem 125 mg In 40 61.083 Sodium Chloride 0.9% 100 ml @ 5 MG/HR 5 mls/hr IV .Q24H [facility] Rx#:[id number] Oral 320 180 Output: Urine 400 700 Other: Weight 74.843 kg 75.5 kg - Constitutional General appearance: no acute distress - EENT Eyes: EOMI - Neck Neck: lymphadenopathy - Respiratory Respiratory: bilateral: diminished - Cardiovascular Rhythm: irregularly irregular Heart sounds: normal: S1, S2 Abnormal Heart Sounds: no S3 Gallop - Gastrointestinal General gastrointestinal: soft, no tenderness - Integumentary Integumentary: no cellulitis - Psychiatric Psychiatric: A&O x's 3, appropriate affect, intact judgment & insight Results CBC & Chem 7: 09/29/21 18:36 09/29/21 18:36 Labs: Abnormal Lab Results - Last 24 Hours (Table) 09/29/21 09/29/21 09/29/21 Range/Units 18:36 18:36 18:36 Hgb 10.0 L (11.4-16.0) gm/dL Hct 33.3 L (34.0-46.0) % MCHC 30.1 L (31.0-37.0) g/dL Plt Count 90 L D (150-450) k/uL PT 12.5 H (9.0-12.0) sec INR 1.2 H (<1.2) D-Dimer 1.99 H (<0.60) mg/L FEU Potassium 3.2 L (3.5-5.1) mmol/L Glucose 105 H (74-99) mg/dL Thrombosis Risk Factor Assmnt - Choose All That Apply Each Factor Represents 1 point: Heart failure (<1month), Swollen legs (current) Each Risk Factor Represents 2 Points: Age 61-74 years Other congenital or acquired thrombophilia - If yes, enter type in comment: No Thrombosis Risk Factor Assessment Total Risk Factor Score: 4 Thrombosis Risk Factor Assessment Level: Moderate Risk Assessment and Plan (1) New onset a-fib Current Visit: Yes Status: Acute Code(s): I48.91 - UNSPECIFIED ATRIAL FIBRILLATION SNOMED Code(s): 37714214 Plan: Continue rate control. Diuresis for element of CHF. Check CBC and CMP in a.m. per Reconcile medications. The patient is otherwise full code
[2021-09-30] MEDS ORDERED: ASPIRIN 325 MG TAB PO SCH (09:00)
[2021-09-30] MEDS: APIXABAN 5 MG TAB PO SCH ×2 (09:46→19:50)
[2021-09-30] MEDS: PANTOPRAZOLE 40 MG TABLET PO SCH (09:46)
[2021-09-30] MEDS: METOPROLOL TARTRATE 50 MG TAB PO SCH ×2 (09:46→19:50)
[2021-09-30] MEDS: ATORVASTATIN 10 MG TAB PO SCH (09:46)
[2021-09-30] MEDS: MULTIVITAMINS, THERA 1 EACH TAB PO SCH (09:46)
--- NOTE | 2021-09-30 10:09 | P.CRDCN ---
History of Present Illness History of present illness: HISTORY OF PRESENT ILLNESS: This is a 71-year-old female with a past medical history significant for hypertension, liver cirrhosis, thrombocytopenia, alcohol abuse, and recent shoulder surgery. 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 We have been asked to see the patient in consultation for atrial fibrillation. Patient examined at the bedside. Patient presented to the hospital a chief complaint shortness of breath for the past week and leg swelling. Patient denies any chest pain or pressure. Patient was found to be in A. fib with RVR. The patient does not have a history of atrial fibrillation. This morning, the patient remains in atrial fibrillation with RVR. She is currently on a Cardizem drip at 10 mg an hour. * EKG reveals atrial fibrillation with RVR * Chest xray small pleural effusions with coarse interstitial density in the lower lung govea could be some mild heart failure and appears new compared to old exam. * Laboratory data: WBC 5.1. Hemoglobin 10.0. Platelet count 90. D-dimer 1.99. Sodium 138. Potassium 3.2. Troponin negative 3. ProBNP 1970. * Current home cardiac medications include metoprolol tartrate 50 mg in the mor prateek and 25 mg in the evening and simvastatin 10 mg daily REVIEW OF SYSTEMS: At the time of my exam: CONSTITUTIONAL: Denies fever or chills. HEENT: Denies blurred vision, vision changes, or eye pain. Denies hemoptysis CARDIOVASCULAR: Denies chest pain. Denies orthopnea. Denies PND. Denies palpitations RESPIRATORY: Denies shortness of breath. GASTROINTESTINAL: Denies abdominal pain. Denies nausea or vomiting. HEMATOLOGIC: Denies bleeding disorders. GENITOURINARY: Denies any blood in urine. SKIN: Denies pruitis. Denies rash. PHYSICAL EXAM: VITAL SIGNS: Reviewed. GENERAL: Well-developed in no acute distress. HEENT: Head is normocephalic. Pupils are equal, round. Sclerae anicteric. Mucous membranes of the mouth are moist. Neck supple. No JVD or thyromegaly LUNGS: Respirations even and unlabored. Lungs essentially clear to auscultation bilaterally. HEART: Tachycardic. Irregular rate and rhythm. S1 and S2 heard. ABDOMEN: Soft. Nondistended. Nontender. EXTREMITIES: Normal range of motion. No clubbing or cyanosis. Peripheral p ulses intact. 1+ bilateral lower extremity edema NEUROLOGIC: Awake and alert. Oriented x 3. ASSESSMENT: Shortness of breath New onset atrial fibrillation with RVR Elevated BNP, does not appear to be in acute CHF at this time Anemia Thrombocytopenia, chronic per patient, currently stable at 90 Hypertension Liver cirrhosis History of alcohol abuse Recent right shoulder surgery PLAN: Obtain 2D echo to assess cardiac structure and function Resume home cardiac medications Increase metoprolol to 100 mg twice a day Wean off Cardizem drip as heart rate will tolerate Begin Eliquis 5 mg twice a day. Continue to monitor CBC. If platelet count drops below 50, will DC Eliquis Continue telemetry monitoring Further recommendations pending patient course Nurse practitioner note has been reviewed by physician. Signing provider agrees with the documented findings, assessment, and plan of care. Past Medical History Past Medical History: Hypertension, Liver Disease, Musculoskeletal Disorder Additional Past Medical History / Comment(s): HX OF CIRRHOSIS dx 2001 ASCITES, CHRONIC BACK PAIN, SINUS PROBLEMS. STATES BLOOD COUNTS LOW DUE TO CIRRHOSIS. VERTIGO. History of Any Multi-Drug Resistant Organisms: None Reported Past Surgical History: Section, Orthopedic Surgery Additional Past Surgical History / Comment(s): X2, SURGERY RT FEMUR WITH HARDWARE. Right femur repair Past Anesthesia/Blood Transfusion Reactions: No Reported Reaction, Motion Sickness Past Psychological History: No Psychological Hx Reported Smoking Status: Never smoker Past Alcohol Use History: None Reported Additional Past Alcohol Use History / Comment(s): HX OF ALCOHOL USE. Past Drug Use History: None Reported - Past Family History Sister(s) Family Medical History: Cancer Daughter(s) Family Medical History: Cancer Medications and Allergies Home Medications Medication Instructions Recorded Confirmed Type Promethazine [Phenergan] 25 mg PO BID PRN 04/28/14 09/29/21 History HYDROcodone/APAP 7.5-325MG [[place] 2 tab PO BID PRN 08/31/21 09/29/21 History 7.5-325] Metoprolol Tartrate [Lopressor] 25 mg PO HS 08/31/21 09/29/21 History Metoprolol Tartrate [Lopressor] 50 mg PO DAILY 08/31/21 09/29/21 History Multivitamins, Thera [Multivitamin 1 tab PO DAILY 08/31/21 09/29/21 History (formulary)] Pantoprazole [Protonix] 40 mg PO DAILY 08/31/21 09/29/21 History Simvastatin [Zocor] 10 mg PO DAILY 08/31/21 09/29/21 History Morphine Sulfate ER [Ms Contin] 15 mg PO TID PRN 09/29/21 09/29/21 History Allergies Allergy/AdvReac Type Severity Reaction Status Date / Time No Known Allergies Allergy Verified 09/29/21 21:10 Physical Exam Vitals: Vital Signs Temp Pulse Pulse Resp BP BP Pulse Ox 09/30/21 04:00 97.5 F L 121 H 19 135/76 93 L 09/30/21 00:00 97.9 F 118 H 17 109/67 94 L 09/29/21 21:52 98.2 F 107 H 20 146/100 95 09/29/21 20:49 95 09/29/21 20:00 112 H 09/29/21 19:48 133 H 18 115/87 98 09/29/21 18:13 22 09/29/21 17:22 98.3 F 111 H 22 101/70 98 Intake and Output 09/29/21 09/30/21 09/30/21 22:59 06:59 14:59 Intake Total 360 61.083 Output Total 400 700 Balance -400 -340 61.083 Intake: Intake, IV Titration 40 61.083 Amount Diltiazem 125 mg In 40 61.083 Sodium Chloride 0.9% 100 ml @ 5 MG/HR 5 mls/hr IV .Q24H [facility] Rx#:[id number] Oral 320 Output: Urine 400 700 Other: Weight 74.843 kg 75.5 kg Results 09/29/21 18:36 09/29/21 18:36 Cardiac Enzymes 09/29/21 09/29/21 09/29/21 Range/Units 18:36 18:36 21:06 AST 34 (14-36) U/L Troponin I <0.012 <0.012 (0.000-0.034) ng/mL 09/30/21 Range/Units 00:35 AST (14-36) U/L Troponin I <0.012 (0.000-0.034) ng/mL Coagulation 09/29/21 Range/Units 18:36 PT 12.5 H (9.0-12.0) sec APTT 24.6 (22.0-30.0) sec CBC 09/29/21 Range/Units 18:36 WBC 5.1 (3.8-10.6) k/uL RBC 3.91 (3.80-5.40) m/uL Hgb 10.0 L (11.4-16.0) gm/dL Hct 33.3 L (34.0-46.0) % Plt Count 90 L D (150-450) k/uL Comprehensive Metabolic Panel 09/29/21 Range/Units 18:36 Sodium 138 (137-145) mmol/L Potassium 3.2 L (3.5-5.1) mmol/L Chloride 98 (98-107) mmol/L Carbon Dioxide 29 (22-30) mmol/L BUN 11 (7-17) mg/dL Creatinine 0.71 (0.52-1.04) mg/dL Glucose 105 H (74-99) mg/dL Calcium 9.6 (8.4-10.2) mg/dL AST 34 (14-36) U/L ALT 16 (4-34) U/L Alkaline Phosphatase 69 (38-126) U/L Total Protein 7.4 (6.3-8.2) g/dL Albumin 4.7 (3.5-5.0) g/dL Current Medications Generic Name Dose Route Start Last Admin Trade Name Freq PRN Reason Stop Dose Admin Hydrocodone Bitart/Acetaminophen 2 each 09/30/21 06:44 09/30/21 06:58 Hydrocodone/Apap 7.5-325mg 1 Each Tab PO 2 each BID PRN Administration Pain Apixaban 5 mg 09/30/21 09:00 Apixaban 5 Mg Tab PO BID [facility] Protocol Diltiazem HCl 125 mg/ Sodium 125 mls @ 5 mls/hr 09/29/21 19:15 09/30/21 08:07 Chloride IV 10 mg/hr .Q24H JADE 10 mls/hr Infusion 5 MG/HR Metoprolol Tartrate 100 mg 09/30/21 09:00 Metoprolol Tartrate 50 Mg Tab PO BID JADE Morphine Sulfate 15 mg 09/30/21 06:44 Morphine Sulfate Er 15 Mg Tablet PO TID PRN Pain Protocol Nitroglycerin 0.4 mg 09/29/21 20:16 Nitroglycerin Sl Tabs 0.4 Mg Tab SUBLINGUAL Q5M PRN Chest Pain Intake and Output 07/20/22 07/21/22 07/21/22 22:59 06:59 14:59 Intake Total 360 61.083 Output Total 400 700 Balance -400 -340 61.083 Intake: Intake, IV Titration 40 61.083 Amount Diltiazem 125 mg In 40 61.083 Sodium Chloride 0.9% 100 ml @ 5 MG/HR 5 mls/hr IV .Q24H [facility] Rx#:[id number] Oral 320 Output: Urine 400 700 Other: Weight 74.843 kg 75.5 kg 09/29/21 18:36 09/29/21 18:36
[2021-09-30 10:56] LABS: Chol/HDL Ratio 2.31 Ratio; LDL Cholesterol,Calculated 60.5 mg/dL (0.0-131.0); VLDL Calculation 12.08 mg/dL (5.00-40.00)
[2021-09-30] MEDS ORDERED: Potassium Replacement Protocol 1 EACH MISC MISCELLANE PRN (11:23)
[2021-09-30] MEDS: POTASSIUM CHLORIDE ER 20 MEQ TAB.ER PO SCH ×2 (12:22→13:19)
[2021-09-30] MEDS: MORPHINE SULFATE ER 15 MG TABLET PO PRN ×2 (15:32→23:25)
[2021-09-30] MEDS: DILTIAZEM 125 MG in SODIUM CHLORIDE 0.9% 100 ML IV SCH (15:34)
[2021-10-01] MEDS: DILTIAZEM 125 MG in SODIUM CHLORIDE 0.9% 100 ML IV SCH (02:07)
[2021-10-01] MEDS: PANTOPRAZOLE 40 MG TABLET PO SCH (06:41)
--- NOTE | 2021-10-01 08:26 | P.PN ---
Subjective Principal diagnosis: New-onset atrial fibrillation with rapid ventricular response. Patient 71-year-old white female essentially admitted for atrial fibrillation of new onset. The patient's heart rate has been slowly stabilizing. Some mild shortness of breath stated. No overt chest pressure. No voiding difficulties Objective - Vital Signs Vital signs: Vital Signs Temp 97.7 F 10/01/21 04:00 Pulse 105 H 10/01/21 04:00 Resp 16 10/01/21 04:00 BP 118/77 10/01/21 04:00 Pulse Ox 91 L 10/01/21 04:00 FiO2 Intake & Output 09/30/21 10/01/21 10/01/21 18:59 06:59 18:59 Intake Total 425.000 600 Balance 425.000 600 Intake: IV 170 Diltiazem 125 mg In 170 Sodium Chloride 0.9% 100 ml @ 5 MG/HR 5 mls/hr IV .Q24H [facility] Rx#:[id number] Intake, IV Titration 125.000 105 Amount Diltiazem 125 mg In 125.000 105 Sodium Chloride 0.9% 100 ml @ 5 MG/HR 5 mls/hr IV .Q24H [facility] Rx#:[id number] Oral 300 325 Other: Voiding Method Toilet # Voids 3 # Bowel Movements 0 - Constitutional General appearance: Present: average body habitus - EENT Eyes: Absent: abnormal pupil - Neck Neck: Absent: lymphadenopathy - Respiratory Respiratory: bilateral: CTA - Cardiovascular Rhythm: irregularly irregular Heart sounds: normal: S1, S2 Abnormal Heart Sounds: Absent: S3 Gallop - Gastrointestinal General gastrointestinal: Present: soft. Absent: tenderness - Integumentary Integumentary: Present: normal - Neurologic Neurologic: Absent: focal deficits - Labs CBC & Chem 7: 09/29/21 18:36 09/29/21 18:36 Assessment and Plan (1) New onset a-fib Current Visit: Yes Status: Acute Code(s): I48.91 - UNSPECIFIED ATRIAL FIBRILLATION SNOMED Code(s): 94005491 Plan: Continue rate control. Diuresis for element of CHF. Check CBC and CMP in a.m. per Reconcile medications. The patient is otherwise full code
[2021-10-01 08:38] LABS: HCT 31.7 % (34.0-46.0); HGB 9.6 gm/dL (11.4-16.0); Hypochromasia Marked; MCH 25.8 pg (25.0-35.0); MCHC 30.3 g/dL (31.0-37.0); Mean Platelet Volume 10.3; Poikilocytosis Slight; RBC 3.73 m/uL (3.80-5.40); RDW 14.6 % (11.5-15.5)
[2021-10-01] MEDS: MULTIVITAMINS, THERA 1 EACH TAB PO SCH (08:41)
[2021-10-01] MEDS: APIXABAN 5 MG TAB PO SCH ×2 (08:41→20:09)
[2021-10-01] MEDS: METOPROLOL TARTRATE 50 MG TAB PO SCH ×2 (08:41→20:09)
[2021-10-01] MEDS: ATORVASTATIN 10 MG TAB PO SCH (08:41)
[2021-10-01] MEDS: HYDROcodone/APAP 7.5-325MG 1 EACH TAB PO PRN ×2 (08:44→17:56)
[2021-10-01 08:45] LABS: Platelet Count 77 k/uL (150-450)
[2021-10-01 08:56] LABS: ALT 13 U/L (4-34); AST 27 U/L (14-36); African American GFR (CKD) >90 (>60 ml/min/1.73 sqM); Albumin 4.2 g/dL (3.5-5.0); Alkaline Phosphatase 59 U/L (38-126); Anion Gap 8 mmol/L; Blood Urea Nitrogen 13 mg/dL (7-17); Calcium 9.1 mg/dL (8.4-10.2); Carbon Dioxide 25 mmol/L (22-30); Chloride 105 mmol/L (98-107); Glucose 118 mg/dL (74-99); Non-African American GFR(CKD) >90 (>60 ml/min/1.73 sqM); Potassium 3.9 mmol/L (3.5-5.1); Sodium 138 mmol/L (137-145); Total Bilirubin 0.8 mg/dL (0.2-1.3); Total Protein 6.8 g/dL (6.3-8.2)
--- NOTE | 2021-10-01 10:57 | CA ---
Transthoracic Echo Report Name: Darlene Bravo Age: 71 Gender: F : 1950 Exam Date: 10/01/2021 08:00 Exam Location: [facility] Ht (in): 68 Wt (lb): 166 Ordering Physician: Christin Hitchcock Attending/Referring Phys: [id number], [facility] Insurance Representative Christina Suarez, [employer] Procedure CPT: Indications: LV function Cardiac Hx: Technical Quality: Fair Contrast 1: Total Dose (mL): Contrast 2: Total Dose (mL): MEASUREMENTS (Male / Female) Normal Values 2D ECHO LV Diastolic Diameter PLAX 4.5 cm 4.2 - 5.9 / 3.9 - 5.3 cm LV Systolic Diameter PLAX 3.1 cm IVS Diastolic Thickness 1.3 cm 0.6 - 1.0 / 0.6 - 0.9 cm LVPW Diastolic Thickness 1.1 cm 0.6 - 1.0 / 0.6 - 0.9 cm LV Relative Wall Thickness 0.5 RV Internal Dim ED PLAX 3.5 cm LA Systolic Diameter LX 4.7 cm 3.0 - 4.0 / 2.7 - 3.8 cm M-MODE Aortic Root Diameter MM 2.6 cm LA Systolic Diameter MM 5.5 cm LA Ao Ratio MM 2.1 AV Cusp Separation MM 1.5 cm DOPPLER TR Peak Velocity 371.5 cm/s TR Peak Gradient 55.2 mmHg Right Ventricular Systolic Press 59.0 mmHg FINDINGS Left Ventricle Normal Left ventricular size, mild wall thickness, systolic function with no obvious regional wall motion abnormalities. Left ventricular ejection fraction is estimated at 55%. Right Ventricle Normal right ventricular size and function. Moderate pulmonary hypertension. Right Atrium Normal right atrial size. Left Atrium Severely increased left atrial diameter. Moderately increased left atrial area. Mitral Valve Structurally normal mitral valve. Moderate to severe mitral regurgitation. Aortic Valve Trileaflet aortic valve. Tricuspid Valve Structurally normal tricuspid valve. Moderate to severe tricuspid regurgitation. Pulmonic Valve Pulmonic valve not well visualized. Structurally normal pulmonic valve. Pericardium Normal pericardium. Aorta Normal size aortic root and proximal ascending aorta. CONCLUSIONS Left ventricular ejection fraction 55% Mild LVH RVSP 59 Moderately dilated left atrium Moderate to severe mitral regurgitation Moderate to severe tricuspid regurgitation No pericardial effusion Previewed by: Dr. Lang Montiel DO (Electronically Signed) Final Date: 01 October 2021 10:56
--- NOTE | 2021-10-01 11:42 | P.PN ---
Subjective Progress Note Date: 10/01/21 HISTORY OF PRESENT ILLNESS: This is a 71-year-old female with a past medical history significant for hypertension, liver cirrhosis, thrombocytopenia, alcohol abuse, and recent shoulder surgery. Patient does not follow with a student life vice president. We have been asked to see the patient in consultation for atrial fibrillation. Patient examined at the bedside. Patient presented to the hospital a chief complaint shortness of breath for the past week and leg swelling. Patient denies any c hest pain or pressure. Patient was found to be in A. fib with RVR. The patient does not have a history of atrial fibrillation. This morning, the patient remains in atrial fibrillation with RVR. She is currently on a Cardizem drip at 10 mg an hour. * EKG reveals atrial fibrillation with RVR * Chest xray small pleural effusions with coarse interstitial density in the lower lung govea could be some mild heart failure and appears new compared to old exam. * Laboratory data: WBC 5.1. Hemoglobin 10.0. Platelet count 90. D-dimer 1.99. Sodium 138. Potassium 3.2. Troponin negative 3. ProBNP 1970. * Current home cardiac medications include metoprolol tartrate 50 mg in the morning and 25 mg in the evening and simvastatin 10 mg daily 10/01/2021 Patient examined this morning at the bedside. Patient denies chest pain or pressure. She denies shortness of breath. Telemetry reveals atrial fibrillation with controlled ventricular rates in the 80s. She remains on a Cardizem drip at 10 mg an hour. Blood pressure stable. PHYSICAL EXAM: VITAL SIGNS: Reviewed. GENERAL: Well-developed in no acute distress. HEENT: Head is normocephalic. Pupils are equal, round. Sclerae anicteric. Mucous membranes of the mouth are moist. Neck supple. No JVD or thyromegaly LUNGS: Respirations even and unlabored. Lungs essentially clear to auscultation bilaterally. HEART: Irregular rate and rhythm. S1 and S2 heard. ABDOMEN: Soft. Nondistended. Nontender. EXTREMITIES: Normal range of motion. No clubbing or cyanosis. Peripheral pulses intact. 1+ bilateral lower extremity edema NEUROLOGIC: Awake and alert. Oriented x 3. ASSESSMENT: Shortness of breath New onset atrial fibrillation with RVR Elevated BNP, does not appear to be in acute CHF at this time Anemia Thrombocytopenia, chronic per patient, currently stable at 90 Hypertension Liver cirrhosis History of alcohol abuse Recent right shoulder surgery PLAN: 2-D echo obtained. Await results Continue current dose of metoprolol Wean off Cardizem drip Continue Eliquis 5 mg twice a day. Continue to monitor CBC. If platelet count drops below 50, will DC Eliquis Continue telemetry monitoring Further recommendations pending patient course Nurse practitioner note has been reviewed by physician. Signing provider agrees with the documented findings, assessment, and plan of care. Objective - Vital Signs Vital signs: Vital Signs Temp 97.6 F 10/01/21 08:35 Pulse 111 H 10/01/21 08:35 Resp 18 10/01/21 08:35 BP 128/87 10/01/21 08:35 Pulse Ox 91 L 10/01/21 08:35 FiO2 Intake & Output 09/30/21 10/01/21 10/01/21 18:59 06:59 18:59 Intake Total 425.000 600 180 Balance 425.000 600 180 Intake: IV 170 Diltiazem 125 mg In 170 Sodium Chloride 0.9% 100 ml @ 5 MG/HR 5 mls/hr IV .Q24H [facility] Rx#:[id number] Intake, IV Titration 125.000 105 Amount Diltiazem 125 mg In 125.000 105 Sodium Chloride 0.9% 100 ml @ 5 MG/HR 5 mls/hr IV .Q24H [facility] Rx#:[id number] Oral 300 325 180 Other: Voiding Method Toilet # Voids 3 # Bowel Movements 0 - Labs CBC & Chem 7: 10/01/21 08:21 10/01/21 08:21 Labs: Abnormal Lab Results - Last 24 Hours (Table) 10/01/21 10/01/21 Range/Units 08:21 08:21 RBC 3.73 L (3.80-5.40) m/uL Hgb 9.6 L (11.4-16.0) gm/dL Hct 31.7 L (34.0-46.0) % MCHC 30.3 L (31.0-37.0) g/dL Plt Count 77 L (150-450) k/uL Glucose 118 H (74-99) mg/dL
[2021-10-01] MEDS ORDERED: DILTIAZEM DRIP BOLUS FROM BAG 1 MG SOLN IV ONE (23:27)
[2021-10-01] MEDS: MORPHINE SULFATE ER 15 MG TABLET PO PRN (23:43)
[2021-10-02] MEDS: HYDROcodone/APAP 7.5-325MG 1 EACH TAB PO PRN ×2 (03:48→11:12)
[2021-10-02] MEDS: DILTIAZEM 125 MG in SODIUM CHLORIDE 0.9% 100 ML IV SCH ×3 (05:43)
[2021-10-02] MEDS: PANTOPRAZOLE 40 MG TABLET PO SCH (06:27)
[2021-10-02 08:13] LABS: Basophils % (A) 1 %; Eosinophils # (A) 0.2 k/uL (0-0.7); Eosinophils % (A) 5 %; HCT 31.1 % (34.0-46.0); HGB 9.4 gm/dL (11.4-16.0); Hypochromasia Marked; Lymphocytes # (A) 1.1 k/uL (1.0-4.8); Lymphocytes % (A) 31 %; MCH 25.9 pg (25.0-35.0); MCHC 30.2 g/dL (31.0-37.0); MCV 85.9 fL (80.0-100.0); Mean Platelet Volume 10.5; Monocytes # (A) 0.3 k/uL (0-1.0); Monocytes % (A) 8 %; Neutrophils # (A) 1.9 k/uL (1.3-7.7); Neutrophils % (A) 53 %; Poikilocytosis Slight; RBC 3.63 m/uL (3.80-5.40); RDW 14.8 % (11.5-15.5); WBC 3.5 k/uL (3.8-10.6)
[2021-10-02 08:19] LABS: Platelet Count 74 k/uL (150-450)
[2021-10-02] MEDS: METOPROLOL TARTRATE 50 MG TAB PO SCH ×2 (11:12→20:43)
[2021-10-02] MEDS: MULTIVITAMINS, THERA 1 EACH TAB PO SCH (11:12)
[2021-10-02] MEDS: ATORVASTATIN 10 MG TAB PO SCH (11:12)
[2021-10-02] MEDS: APIXABAN 5 MG TAB PO SCH ×2 (11:12→20:43)
--- NOTE | 2021-10-02 17:15 | PN ---
PROGRESS NOTE FOLLOW-UP NOTE: Darlene is a 71-year-old lady with prior history of CVA who is admitted to hospital with new-onset atrial fibrillation. She has history of dyslipidemia. She converted back to sinus rhythm but went back into atrial fibrillation with rapid ventricular rate last night, and I started her on intravenous Cardizem. This morning she continues to be in atrial fibrillation with poorly controlled ventricular rate. An echocardiogram on her shows normal LV systolic function with moderate mitral and tricuspid regurgitation. On exam today, heart rate is around 110 to 115 beats per minute. Blood pressure is 116/72. Respiratory rate is 18. O2 saturation is 94% on room air. There is no jugular venous distention. Chest exam reveals good air entry bilaterally. Heart exam reveals first and second heart sounds, systolic murmur at the apex. Abdomen is soft. Examination of extremities did not reveal any edema. Peripheral pulses are felt. Labs show a hemoglobin of 9.4, platelet count is 74. Potassium is 3.9. Creatinine is 0.5. ASSESSMENT: 1. Persistent atrial fibrillation with poorly controlled ventricular rate. 2. Thrombocytopenia. PLAN: I will increase the dose of Cardizem to 10 mg daily. Continue the Eliquis. We will watch the platelet count closely. MMODL / IJN: [id number] /
[2021-10-02] MEDS: MORPHINE SULFATE ER 15 MG TABLET PO PRN (20:43)
[2021-10-03] MEDS: DILTIAZEM 125 MG in SODIUM CHLORIDE 0.9% 100 ML IV SCH ×3 (01:04→18:39)
[2021-10-03] MEDS: HYDROcodone/APAP 7.5-325MG 1 EACH TAB PO PRN ×3 (03:37→19:48)
[2021-10-03] MEDS: PANTOPRAZOLE 40 MG TABLET PO SCH (06:17)
[2021-10-03] MEDS: MULTIVITAMINS, THERA 1 EACH TAB PO SCH (10:47)
[2021-10-03] MEDS: ATORVASTATIN 10 MG TAB PO SCH (10:47)
[2021-10-03] MEDS: METOPROLOL TARTRATE 50 MG TAB PO SCH ×2 (10:48→19:49)
[2021-10-03] MEDS: APIXABAN 5 MG TAB PO SCH ×2 (10:48→19:49)
--- NOTE | 2021-10-03 16:46 | PN ---
PROGRESS NOTE Darlene is a 71-year-old lady is admitted to hospital with new onset atrial fibrillation. Her heart rate is still somewhat poorly controlled on 10 mg of Cardizem and metoprolol 100 b.i.d. she is on Eliquis 5 b.i.d. and also on Lipitor. On exam, heart rate is 110 to 120 beats per minute. Blood pressure is 109/64, respiratory 16. Chest exam reveals good air entry bilaterally. Heart exam reveals first and second heart sounds, irregular rhythm and a systolic murmur at the apex. Abdomen is soft. Exam of extremities did not reveal any edema. Peripheral pulses are palpable. Labs show that the hemoglobin is 9.4, platelet count is 74. Potassium is 3.9 and creatinine is 0.5. ASSESSMENT: Persistent atrial fibrillation with poorly controlled ventricular rate. PLAN: I will continue the Cardizem and will continue the metoprolol that she is on and if necessary add amiodarone, but I will try to avoid it because of all the toxicity. We will continue to watch the thrombocytopenia, but at the moment, it is safe to continue the anticoagulant. MMODL / IJN: [id number] /
--- NOTE | 2021-10-03 20:09 | P.PN ---
Subjective Progress Note Date: 10/02/21 Principal diagnosis: New-onset atrial fibrillation 71-year-old white female with known history of cirrhosis and opiate dependence history of hypertension who stated yesterday she had significant edema of the lower extremities and dyspnea. Evaluation emergency room showed new onset atrial fibrillation and she is appropriately admitted. Cardizem has been started metoprolol and titrated. The patient is sitting comfortably and lucid. No significant shortness of breath now stated. No nausea, vomiting or diarrhea. No diaphoresis. Cardiology on board; patient has been weaned off IV Cardizem infusion and is placed on oral Cardizem with plans to escalate dose as needed; patient remains on anticoagulation Objective - Vital Signs Vital signs: Vital Signs Temp 97.8 F 10/02/21 03:42 Pulse 93 10/02/21 03:42 Resp 18 10/02/21 03:42 BP 116/72 10/02/21 03:42 Pulse Ox 93 L 10/02/21 03:42 FiO2 Intake & Output 10/01/21 10/02/21 10/02/21 18:59 06:59 18:59 Intake Total 665 430.500 Output Total 0 Balance 665 430.500 Intake: Intake, IV Titration 125 30.500 Amount Diltiazem 125 mg In 125 30.500 Sodium Chloride 0.9% 100 ml @ 5 MG/HR 5 mls/hr IV .Q24H [facility] Rx#:[id number] Oral 540 400 Output: Stool 0 Other: Voiding Method Toilet # Voids 3 # Bowel Movements 0 - Exam - Constitutional General appearance: Present: average body habitus, cooperative, no acute distress - EENT Eyes: Present: anicteric sclerae, EOMI, PERRLA, normal appearance ENT: Present: hearing grossly normal, normal oropharynx Ears: bilateral: normal - Neck Neck: Present: normal ROM. Absent: lymphadenopathy, rigidity, thyromegaly Carotids: negative: bruit present Thyroid: bilateral: normal size, negative: enlarged, nodule - Respiratory Respiratory: bilateral: CTA, negative: rales, rhonchi, wheezing - Cardiovascular Rhythm: regular Heart sounds: normal: S1, S2 Abnormal Heart Sounds: Absent: systolic murmur, diastolic murmur - Gastrointestinal General gastrointestinal: Present: normal bowel sounds, soft. Absent: distended, organomegaly, tenderness - Genitourinary Genitourinary Comment(s): deferred - Integumentary Integumentary: Present: normal turgor. Absent: jaundiced, rash, ulcer - Neurologic Neurologic: Present: CNII-XII intact. Absent: focal deficits - Musculoskeletal Musculoskeletal: Present: gait normal, strength equal bilaterally - Psychiatric Psychiatric: Present: A&O x's 3, appropriate affect, intact judgment & insight - Labs CBC & Chem 7: 10/02/21 07:42 10/01/21 08:21 Labs: Abnormal Lab Results - Last 24 Hours (Table) 10/02/21 Range/Units 07:42 WBC 3.5 L (3.8-10.6) k/uL RBC 3.63 L (3.80-5.40) m/uL Hgb 9.4 L (11.4-16.0) gm/dL Hct 31.1 L (34.0-46.0) % MCHC 30.2 L (31.0-37.0) g/dL Plt Count 74 L (150-450) k/uL Assessment and Plan Assessment: New onset atrial fibrillation with RVR Elevated BNP, does not appear to be in acute CHF at this time Anemia Thrombocytopenia, chronic per patient, currently stable at 90 Hypertension Liver cirrhosis History of alcohol abuse Recent right shoulder surgery PLAN: 2-D echo obtained. Await results Continue current dose of metoprolol Wean off Cardizem drip Continue Eliquis 5 mg twice a day. Continue to monitor CBC. If platelet count drops below 50, will DC Eliquis Continue telemetry monitoring Further recommendations pending patient course
--- NOTE | 2021-10-03 20:16 | P.PN ---
Subjective Progress Note Date: 10/03/21 Principal diagnosis: New-onset atrial fibrillation 71-year-old white female with known history of cirrhosis and opiate dependence history of hypertension who stated yesterday she had significant edema of the lower extremities and dyspnea. Evaluation emergency room showed new onset atrial fibrillation and she is appropriately admitted. Cardizem has been started metoprolol and titrated. The patient is sitting comfortably and lucid. No significant shortness of breath now stated. No nausea, vomiting or diarrhea. No diaphoresis. Cardiology on board; patient has been weaned off IV Cardizem infusion and is placed on oral Cardizem with plans to escalate dose as needed; patient remains on anticoagulation 10/03/2021 Patient is seen and evaluated in room at bedside; denies any complaint of chest and shortness of breath Vital signs are reviewed; continues to have elevated heart rate Cardiology on board and patient has been placed back on Cardizem at a rate of 10 mg per hour; currently on Lopressor 100 mg twice a day; cardiology recommending to monitor patient for another 24 hours with plans for possible addition of amiodarone if patient remains poorly controlled with Cardizem and metoprolol; patient was on oral anticoagulation Objective - Vital Signs Vital signs: Vital Signs Temp 97.3 F L 10/03/21 12:10 Pulse 100 10/03/21 12:10 Resp 18 10/03/21 12:10 BP 132/88 10/03/21 12:10 Pulse Ox 96 10/03/21 12:10 FiO2 Intake & Output 10/02/21 10/03/21 10/03/21 18:59 06:59 18:59 Intake Total 96.75 472 Output Total 0 0 Balance 0 96.75 472 Intake: Intake, IV Titration 96.75 Amount Diltiazem 125 mg In 96.75 Sodium Chloride 0.9% 100 ml @ 10 MG/HR 10 mls/hr IV .[id number] [facility] Rx#: [id number] Oral 472 Output: Stool 0 0 Other: Voiding Method Toilet Toilet Toilet # Voids 3 4 2 - Exam - Constitutional General appearance: Present: average body habitus, cooperative, no acute distress - EENT Eyes: Present: anicteric sclerae, EOMI, PERRLA, normal appearance ENT: Present: hearing grossly normal, normal oropharynx Ears: bilateral: normal - Neck Neck: Present: normal ROM. Absent: lymphadenopathy, rigidity, thyromegaly Carotids: negative: bruit present Thyroid: bilateral: normal size, negative: enlarged, nodule - Respiratory Respiratory: bilateral: CTA, negative: rales, rhonchi, wheezing - Cardiovascular Rhythm: regular Heart sounds: normal: S1, S2 Abnormal Heart Sounds: Absent: systolic murmur, diastolic murmur - Gastrointestinal General gastrointestinal: Present: normal bowel sounds, soft. Absent: distended, organomegaly, tenderness - Genitourinary Genitourinary Comment(s): deferred - Integumentary Integumentary: Present: normal turgor. Absent: jaundiced, rash, ulcer - Neurologic Neurologic: Present: CNII-XII intact. Absent: focal deficits - Musculoskeletal Musculoskeletal: Present: gait normal, strength equal bilaterally - Psychiatric Psychiatric: Present: A&O x's 3, appropriate affect, intact judgment & insight - Labs CBC & Chem 7: 10/02/21 07:42 10/01/21 08:21 Assessment and Plan Assessment: New onset atrial fibrillation with RVR Elevated BNP, does not appear to be in acute CHF at this time Anemia Thrombocytopenia, chronic per patient, currently stable at 90 Hypertension Liver cirrhosis History of alcohol abuse Recent right shoulder surgery PLAN: 2-D echo obtained. Await results Continue current dose of metoprolol Wean off Cardizem drip Continue Eliquis 5 mg twice a day. Continue to monitor CBC. If platelet count drops below 50, will DC Eliquis Continue telemetry monitoring Further recommendations pending patient course
[2021-10-04] MEDS: MORPHINE SULFATE ER 15 MG TABLET PO PRN ×2 (02:58→12:47)
[2021-10-04] MEDS: DILTIAZEM 125 MG in SODIUM CHLORIDE 0.9% 100 ML IV SCH (06:09)
[2021-10-04] MEDS: PANTOPRAZOLE 40 MG TABLET PO SCH (06:09)
--- NOTE | 2021-10-04 08:23 | P.PN ---
Subjective Principal diagnosis: New-onset atrial fibrillation with rapid ventricular response. Patient 71-year-old white female essentially admitted for atrial fibrillation of new onset. The patient's heart rate has been slowly stabilizing. Some mild shortness of breath stated. No overt chest pressure. No voiding difficulties. Heart rate still tachycardic Objective - Vital Signs Vital signs: Vital Signs Temp 98.2 F 10/03/21 20:00 Pulse 80 10/04/21 04:00 Resp 18 10/04/21 04:00 BP 124/66 10/04/21 04:00 Pulse Ox 97 10/04/21 04:00 FiO2 Intake & Output 10/03/21 10/04/21 10/04/21 18:59 06:59 18:59 Intake Total 597 240 Output Total 0 0 Balance 597 240 Intake: Intake, IV Titration 125 Amount Diltiazem 125 mg In 125 Sodium Chloride 0.9% 100 ml @ 10 MG/HR 10 mls/hr IV .[id number] [facility] Rx#: [id number] Oral 472 240 Output: Stool 0 0 Other: Voiding Method Toilet Toilet # Voids 2 3 - Constitutional General appearance: Present: average body habitus - EENT Eyes: Absent: abnormal pupil - Neck Neck: Absent: lymphadenopathy - Respiratory Respiratory: bilateral: CTA - Cardiovascular Rhythm: irregularly irregular Heart sounds: normal: S1, S2 Abnormal Heart Sounds: Absent: S3 Gallop - Gastrointestinal General gastrointestinal: Present: soft. Absent: tenderness - Integumentary Integumentary: Absent: cellulitis - Psychiatric Psychiatric: Present: A&O x's 3, appropriate affect - Labs CBC & Chem 7: 10/02/21 07:42 10/01/21 08:21 Assessment and Plan (1) New onset a-fib Current Visit: Yes Status: Acute Code(s): I48.91 - UNSPECIFIED ATRIAL FIBRILLATION SNOMED Code(s): 24434093 Plan: Appreciate cardiology input. Rate lowering medication to continue. Anticipate discharge in next 24-48 hours
[2021-10-04] MEDS: ATORVASTATIN 10 MG TAB PO SCH (09:21)
[2021-10-04] MEDS: MULTIVITAMINS, THERA 1 EACH TAB PO SCH (09:21)
[2021-10-04] MEDS: APIXABAN 5 MG TAB PO SCH (09:21)
[2021-10-04] MEDS: METOPROLOL TARTRATE 50 MG TAB PO SCH (09:21)
[2021-10-04] MEDS: HYDROcodone/APAP 7.5-325MG 1 EACH TAB PO PRN (09:22)
[2021-10-04 09:29] VITALS: RESP 16
[2021-10-04 10:20] LABS: Basophils % (A) 1 %; Eosinophils # (A) 0.1 k/uL (0-0.7); Eosinophils % (A) 5 %; HCT 31.3 % (34.0-46.0); HGB 9.2 gm/dL (11.4-16.0); Hypochromasia Marked; Lymphocytes # (A) 0.7 k/uL (1.0-4.8); Lymphocytes % (A) 25 %; MCH 25.1 pg (25.0-35.0); MCHC 29.5 g/dL (31.0-37.0); MCV 84.9 fL (80.0-100.0); Mean Platelet Volume 10.5; Monocytes # (A) 0.3 k/uL (0-1.0); Monocytes % (A) 9 %; Neutrophils # (A) 1.5 k/uL (1.3-7.7); Neutrophils % (A) 56 %; RBC 3.69 m/uL (3.80-5.40); RDW 14.7 % (11.5-15.5); WBC 2.7 k/uL (3.8-10.6)
[2021-10-04 10:23] LABS: Platelet Count 66 k/uL (150-450)
[2021-10-04 10:35] LABS: African American GFR (CKD) >90 (>60 ml/min/1.73 sqM); Anion Gap 7 mmol/L; Blood Urea Nitrogen 13 mg/dL (7-17); Calcium 9.1 mg/dL (8.4-10.2); Carbon Dioxide 29 mmol/L (22-30); Chloride 102 mmol/L (98-107); Glucose 166 mg/dL (74-99); Non-African American GFR(CKD) >90 (>60 ml/min/1.73 sqM); Potassium 4.4 mmol/L (3.5-5.1); Sodium 138 mmol/L (137-145)
--- NOTE | 2021-10-04 12:09 | P.PN ---
Subjective This is a 71-year-old female with a past medical history significant for liver cirrhosis, thrombocytopenia, alcohol abuse, history of CVA/TIA and recent shoulder surgery. Patient does not follow with a intelligence support officer. We have been asked to see the patient in consultation for atrial fibrillation. Patient presented to the hospital a chief complaint shortness of breath for the past week and leg swelling and found to be in atrial fibrillation with rapid ventricular response. Echocardiogram revealed an EF 55%, moderate pulmonary hypertension moderate to severe mitral regurgitation mild to severe tricuspid regurgitation, RVSP 39 mmHg 10/04/2021 Patient examined at the bedside, no acute distress. She denies any palpitations, lightheadedness, dizziness or chest pain. She continues to be in atrial fibrillation with heart rates in the [id number]. His Cardizem has been weaned off. Her lower extremity edema has improved. Meds: Eliquis 5 mg twice a day, atorvastatin 10 mg daily, metoprolol tartrate 100 mg twice a day PHYSICAL EXAM: VITAL SIGNS: Reviewed. GENERAL: Well-developed in no acute distress. HEENT: Neck supple. No JVD LUNGS: Respirations even and unlabored. Lungs essentially clear to auscultation bilaterally. HEART: Irregular rate and rhythm. S1 and S2 heard. ABDOMEN: Soft. Nondistended. Nontender. EXTREMITIES: Normal range of motion. No clubbing or cyanosis. Peripheral pulses intact. no lower extremity edema NEUROLOGIC: Awake and alert. Oriented x 3. ASSESSMENT: Shortness of breath New onset paroxysmal atrial fibrillation with RVR [id number] score 4 currently on Eliquis Elevated BNP, does not appear to be in acute CHF at this time Anemia Thrombocytopenia, chronic per patient, currently stable at 90 History of CVA/TIA per patient Liver cirrhosis History of alcohol abuse Recent right shoulder surgery Moderate severe mitral regurgitation Moderate severe tricuspid regurgitation PLAN: From a cardiology perspective patient is stable at current heart rates We can consider amiodarone if necessary however will try to avoid it because of the toxicity Continue Eliquis 5mg BID and continue metoprolol Follow up outpatient with Dr. Randolph on discharge Nurse practitioner note has been reviewed by physician. Signing provider agrees with the documented findings, assessment, and plan of care. Objective - Vital Signs Vital signs: Vital Signs Temp 98.0 F 10/03/21 16:20 Pulse 85 10/03/21 16:20 Resp 16 10/03/21 16:20 BP 113/75 10/03/21 16:20 Pulse Ox 100 10/03/21 16:20 FiO2 Intake & Output 10/03/21 10/03/21 10/04/21 06:59 18:59 06:59 Intake Total 96.75 597 Output Total 0 Balance 96.75 597 Intake: Intake, IV Titration 96.75 125 Amount Diltiazem 125 mg In 96.75 125 Sodium Chloride 0.9% 100 ml @ 10 MG/HR 10 mls/hr IV .[id number] [facility] Rx#: [id number] Oral 472 Output: Stool 0 Other: Voiding Method Toilet Toilet # Voids 4 2 - Labs CBC & Chem 7: 10/04/21 09:40 10/04/21 09:40
[2021-10-04 12:49] VITALS: BP 106/71; PULSE 104; TEMP 98
--- NOTE | 2021-10-04 13:03 | P.DS ---
Providers Date of admission: 09/29/21 20:16 Attending physician: Jhonatan Katz Consults: 09/29/21 20:16 Consult Physician Urgent Consulting Provider: [facility] Consult Reason/Comments: New-onset A. fib Do you want consulting provider notified?: Yes Primary care physician: Jhonatan Katz - Discharge Diagnosis(es) (1) New onset a-fib Current Visit: Yes Status: Acute Assessment: This is discharge from a 71-year-old white female centimeter for new onset atrial fibrillation with rapid ventricular response. The patient was stabilized after having Cardizem drip and placed on appropriate medication changes. Heart rate was still somewhat tachycardic but definitely more tolerated. No chest pain or shortness of breath stated. She is and related without difficulty appetite is nominal no voiding difficulties. She is discharge after being cleared by cardiology and will follow up with me in about 3 days. Patient Condition at Discharge: Good Plan - Discharge Summary Discharge Rx Participant: No New Discharge Prescriptions: New Apixaban [Eliquis] 5 mg PO BID #60 tab Atorvastatin [Lipitor] 10 mg PO DAILY tab Metoprolol Tartrate [Lopressor] 100 mg PO BID #60 tab Promethazine [Phenergan] 25 mg PO BID PRN tab PRN Reason: Nausea Continue Simvastatin [Zocor] 10 mg PO DAILY Pantoprazole [Protonix] 40 mg PO DAILY Multivitamins, Thera [Multivitamin (formulary)] 1 tab PO DAILY Morphine Sulfate ER [Ms Contin] 15 mg PO TID PRN PRN Reason: Pain HYDROcodone/APAP 7.5-325MG [[place] 7.5-325] 2 tab PO BID PRN PRN Reason: Pain Discontinued Promethazine [Phenergan] 25 mg PO BID PRN PRN Reason: Nausea Metoprolol Tartrate [Lopressor] 50 mg PO DAILY Metoprolol Tartrate [Lopressor] 25 mg PO HS Discharge Medication List HYDROcodone/APAP 7.5-325MG [[place] 7.5-325] 2 tab PO BID PRN 08/31/21 [History] Multivitamins, Thera [Multivitamin (formulary)] 1 tab PO DAILY 08/31/21 [History] Pantoprazole [Protonix] 40 mg PO DAILY 08/31/21 [History] Simvastatin [Zocor] 10 mg PO DAILY 08/31/21 [History] Morphine Sulfate ER [Ms Contin] 15 mg PO TID PRN 09/29/21 [History] Apixaban [Eliquis] 5 mg PO BID #60 tab 09/30/21 [Rx] Atorvastatin [Lipitor] 10 mg PO DAILY tab 10/04/21 [Rx] Metoprolol Tartrate [Lopressor] 100 mg PO BID #60 tab 10/04/21 [Rx] Promethazine [Phenergan] 25 mg PO BID PRN tab 10/04/21 [Rx] Follow up Appointment(s)/Referral(s): Parmjit Randolph MD [STAFF PHYSICIAN] - 1 Week Jhonatan Katz MD [Primary Care Provider] - 3 Days Discharge Disposition: HOME SELF-CARE
--- NOTE | 2021-10-04 13:19 | CDI ---
Documentation Clarification Form Date: 10/04/2021 01:18:18 PM From: Minerva Mcdonald CCS, CCDS Admit Date: 09/29/2021 08:16:00 PM Patient Name: Darlene Bravo Visit Number: [id number] Discharge Date: ATTENTION: The Clinical Documentation Specialists (CDI) and [facility] Coding Staff appreciate your assistance in clarifying documentation. Please respond to the clarification below the line at the bottom and electronically sign. The CDI & [facility] Coding staff will review the response and follow-up if needed. Please note: Queries are made part of the Legal Health Record. If you have any questions, please contact the author of this message via ITS. Dr. Natanael Hernandez: Elevated BNP, does not appear to be in acute CHF at this time is documented throughout the record without further specificity of the CHF documented. Additional information regarding the Type & Acuity of CHF is requested. History/Risk Factors per the 09/30 H/P: Liver Cirrhosis & Opiate dependence, Ascites, Hypertension, Chronic Back Pain, Vertigo. Clinical Indicators: Presented to the ED on 09/29 with SOB x3 weeks, slowly worsening since shoulder surgery about a month ago, swelling in both legs, > left. Admit with new onset Atrial Fibrillation 09/29 VS: T 98.3, P 111, 133; R 22 (non labored, sob), BP 101/70, PO 98 RA, BMI: 25.3 09/29 LAB: Hgb 10.0, Hct 33.3, Plt Ct 90; PT 12.5, INR 1.2, D Dimer 1.99; K 3.2, glucose 105 09/29 RAD: CXR: Small pleural effusions with coarse interstitial density in the lower lung govea, could be some mild heart failure & appears new. CT Chest: No PE. Cardiomegaly with pleural effusions likely related to some CHF. 09/29 EKG: R 146 Atrial fibrillation w/RVR. 10/01 ECHO: Left ventricular EF 55%. Mild LVH, Moderately dilated left atrium. Moderate to severe Moderate Regurgitation. Moderate to severe Tricuspid Regurgitation. Treatment 09/29: Heart healthy diet, O2 2Lnc, IV Na Chl 1,000 mls @ 999 mls/hr q1H, Nitro sl q5M/prn. In your professional opinion, can you please clarify the Type & Acuity of CHF if known? [ ] Chronic Diastolic Heart Failure [ ] Acute on Chronic Diastolic Heart Failure [ ] Heart Failure ruled out [ ] Other, please specify: [ ] Unable to determine I have not diagnosed CHF in this patient. Do not code for it from documentation (Template Last Revised: April 2020) MTDD
== END 2021-10-04 16:06 | disposition home or self-care (01) | DRG 309 ==
LOC: EC 16:57 → 3SCARD 20:16
PROVIDERS: ADMIT Family Medicine; ATTEND Family Medicine
DX: I48.19 Other persistent atrial fibrillation (principal); F11.20 Opioid dependence, uncomplicated; I48.91 Unspecified atrial fibrillation; D69.6 Thrombocytopenia, unspecified; I27.20 Pulmonary hypertension, unspecified; I08.1 Rheumatic disorders of both mitral and tricuspid valves; E78.5 Hyperlipidemia, unspecified; I11.0 Hypertensive heart disease with heart failure; I50.9 Heart failure, unspecified; K74.60 Unspecified cirrhosis of liver; Z86.73 Personal history of transient ischemic attack (TIA), and cerebral infarction without residual deficits; Z79.899 Other long term (current) drug therapy
CPT/HCPCS: 36415; 71046; 71275; 80048; 80053; 80061; 83605; 83735; 83880; 84443; 84484; 85025; 85027; 85379; 85610; 85730; 93005; 93306; 99291

== ENCOUNTER → 2021-11-10 | Outpatient (CLI) | payer MEDICARE, OTHER ==
--- NOTE | 2021-11-10 15:55 | US ---
EXAMINATION TYPE: US venous doppler duplex UE RT DATE OF EXAM: 11/10/2021 COMPARISON: NONE CLINICAL HISTORY: T14.8XXA BRUISING. Bruising SIDE PERFORMED: Right Arm: Negative for DVT Grayscale, color doppler, spectral doppler imaging performed of the deep veins of the upper extremiti es. There is normal flow, compressibility and vascular waveforms. IMPRESSION: No evidence of DVT at this time.
== END | disposition home or self-care (01) ==
LOC: RADUSWWP 14:28
PROVIDERS: ATTEND Family Medicine
DX: T14.8XXA Other injury of unspecified body region, initial encounter (principal); X58.XXXA Exposure to other specified factors, initial encounter

== ENCOUNTER 2021-11-18 10:28 | Day surgery (SDC) | payer MEDICARE, OTHER ==
[2021-11-17 10:25] VITALS: BMI 26.2
[~2021-11-18 10:28] MED LIST changes: -DEXAMETHASONE SOD PHOSPHATE 4 MG/ML 1 ML VIAL IV ONE; -LACTATED RINGERS 1,000 ML IV SCH; -ONDANSETRON 4 MG/2 ML VIAL IVP ONE; +SODIUM CHLORIDE 0.9% 1,000 ML IV SCH
[2021-11-18] MEDS ORDERED: SODIUM CHLORIDE 0.9% 500 ML 500 ML IV ONE (10:38)
[2021-11-18 11:11] VITALS: TEMP 97.8
[2021-11-18 11:21] LABS: African American GFR (CKD) >90 (>60 ml/min/1.73 sqM); Anion Gap 13 mmol/L; Blood Urea Nitrogen 15 mg/dL (7-17); Calcium 9.3 mg/dL (8.4-10.2); Carbon Dioxide 26 mmol/L (22-30); Chloride 99 mmol/L (98-107); Glucose 111 mg/dL (74-99); Non-African American GFR(CKD) 79 (>60 ml/min/1.73 sqM); Potassium 3.8 mmol/L (3.5-5.1); Sodium 138 mmol/L (137-145)
[2021-11-18] MEDS ORDERED: PROPOFOL 10 MG/ML 20 ML VIAL IV ONE (13:14)
--- NOTE | 2021-11-18 13:36 | P.EPPROC ---
- EP Procedure Note Electrophysiology Procedure Note: Diagnosis Persistent atrial fibrillation with RVR Severity symptomatic patient Procedure Electrical cardioversion Details successful electrical cardioversion with a 200 J biphasic shock and the configuration to sinus rhythm Plan Continue anticoagulation
[2021-11-18 15:28] VITALS: BP 134/67; PULSE 76; RESP 16
== END 2021-11-18 15:39 | disposition home or self-care (01) ==
LOC: CATHCVL 10:28
PROVIDERS: ATTEND Internal Medicine Clinical Cardiac Electrophysiology
DX: I48.19 Other persistent atrial fibrillation (principal); I34.0 Nonrheumatic mitral (valve) insufficiency; I36.1 Nonrheumatic tricuspid (valve) insufficiency; I38 Endocarditis, valve unspecified; R06.02 Shortness of breath; I11.0 Hypertensive heart disease with heart failure; M19.90 Unspecified osteoarthritis, unspecified site; K21.9 Gastro-esophageal reflux disease without esophagitis; R22.40 Localized swelling, mass and lump, unspecified lower limb; I50.30 Unspecified diastolic (congestive) heart failure; Z86.73 Personal history of transient ischemic attack (TIA), and cerebral infarction without residual deficits; Z87.19 Personal history of other diseases of the digestive system; Z79.899 Other long term (current) drug therapy; Z79.02 Long term (current) use of antithrombotics/antiplatelets; Z79.891 Long term (current) use of opiate analgesic; Z79.01 Long term (current) use of anticoagulants; Z20.822 Contact with and (suspected) exposure to COVID-19
CPT/HCPCS: 92960; 80048; 87635; J2704

== ENCOUNTER 2021-12-10 10:20 | Inpatient (IN) | payer MEDICARE, OTHER ==
[2021-12-10 11:18] LABS: INR 1.2 (<1.2); Partial Thromboplastin Time 26.1 sec (22.0-30.0); Prothrombin Time 12.8 sec (9.0-12.0)
[2021-12-10 11:21] LABS: Anisocytosis Slight; Basophils % (A) 1 %; Eosinophils # (A) 0.1 k/uL (0-0.7); Eosinophils % (A) 5 %; Hypochromasia Marked; Lymphocytes # (A) 0.4 k/uL (1.0-4.8); Lymphocytes % (A) 16 %; MCH 20.4 pg (25.0-35.0); MCHC 27.9 g/dL (31.0-37.0); MCV 72.9 fL (80.0-100.0); Microcytosis Moderate; Monocytes # (A) 0.2 k/uL (0-1.0); Monocytes % (A) 8 %; Neutrophils # (A) 1.9 k/uL (1.3-7.7); Neutrophils % (A) 69 %; Poikilocytosis Slight; RBC 3.15 m/uL (3.80-5.40); RDW 19.4 % (11.5-15.5); WBC 2.8 k/uL (3.8-10.6)
[2021-12-10 11:25] LABS: HGB 6.4 gm/dL (11.4-16.0)
[2021-12-10 11:32] LABS: ALT 18 U/L (4-34); AST 37 U/L (14-36); African American GFR (CKD) >90 (>60 ml/min/1.73 sqM); Alkaline Phosphatase 54 U/L (38-126); Anion Gap 11 mmol/L; Blood Urea Nitrogen 11 mg/dL (7-17); Calcium 8.9 mg/dL (8.4-10.2); Carbon Dioxide 31 mmol/L (22-30); Chloride 98 mmol/L (98-107); Glucose 116 mg/dL (74-99); Non-African American GFR(CKD) >90 (>60 ml/min/1.73 sqM); Sodium 140 mmol/L (137-145); Total Protein 6.3 g/dL (6.3-8.2)
[2021-12-10] MEDS ORDERED: POTASSIUM CHLORIDE ER 20 MEQ TAB.ER PO STA (11:50)
[2021-12-10 12:40] LABS: Platelet Count 91 k/uL (150-450)
[2021-12-10] MEDS: PANTOPRAZOLE 40 MG TABLET PO SCH (17:36)
[2021-12-10] MEDS: SODIUM CHLORIDE 0.9% 1,000 ML IV SCH (17:40)
[2021-12-10] MEDS: METOPROLOL TARTRATE 50 MG TAB PO SCH (20:17)
--- NOTE | 2021-12-10 20:28 | ED ---
GI Bleed HPI - General Chief complaint: Recheck/Abnormal Lab/Rx Stated complaint: lab recheck, needs blood Time Seen by Provider: 12/10/21 10:37 Source: patient Mode of arrival: wheelchair Limitations: no limitations - History of Present Illness Initial comments: Patient is a 71-year-old female with a past nuchal history of atrial fibrillation on Eliquis and GI bleed who presents to the ED for low hemoglobin. Patient states she had routine blood drawn from her primary care provider yesterday and was called today with report that her hemoglobin was 6.5. Patient states she feels well. Denies fever, chills, fatigue, lightheadedness, dizziness, chest pain, shortness of breath, abdominal pain, nausea, vomiting, diarrhea, blood in stool, blood in urine. Patient believes she had a GI bleed a few years ago which was treated by Dr. Hernandez. Denies chronic anti-inflammatory use and alcohol use. - Related Data Home Medications Medication Instructions Recorded Confirmed HYDROcodone/APAP 7.5-325MG [[place] 1 tab PO QID PRN 08/31/21 12/10/21 7.5-325] Pantoprazole [Protonix] 40 mg PO DAILY 08/31/21 12/10/21 Simvastatin [Zocor] 10 mg PO DAILY 08/31/21 12/10/21 Morphine Sulfate ER [Ms Contin] 15 mg PO TID PRN 09/29/21 12/10/21 Furosemide [Lasix] 40 mg PO DAILY 12/10/21 12/10/21 Metoprolol Tartrate [Lopressor] 50 mg PO BID 12/10/21 12/10/21 Potassium Chloride ER [K-Dur 20] 20 meq PO DAILY 12/10/21 12/10/21 Previous Rx's Medication Instructions Recorded Apixaban [Eliquis] 5 mg PO BID #60 tab 09/30/21 Allergies Allergy/AdvReac Type Severity Reaction Status Date / Time No Known Allergies Allergy Verified 12/10/21 17:00 Review of Systems ROS Statement: Those systems with pertinent positive or pertinent negative responses have been documented in the HPI. ROS Other: All systems not noted in ROS Statement are negative. Past Medical History Past Medical History: Atrial Fibrillation, Hearing Disorder / Deafness, H ypertension, Liver Disease, Musculoskeletal Disorder, Osteoarthritis (OA) Additional Past Medical History / Comment(s): See Dr Randolph's H&P,SOB, bruises rt arm,scar tissure in the esophagus,HX OF CIRRHOSIS dx 2002 ASCITES, CHRONIC BACK PAIN, SINUS PROBLEMS. STATES BLOOD COUNTS LOW DUE TO CIRRHOSIS. VERTIGO,TULALIP History of Any Multi-Drug Resistant Organisms: None Reported Past Surgical History: Breast Surgery, Section, Orthopedic Surgery, Tubal Ligation Additional Past Surgical History / Comment(s): X2, SURGERY RT FEMUR WITH HARDWARE. Right femur repair,breast procedures,rt shoulder -2021,ORIF rt hip Past Anesthesia/Blood Transfusion Reactions: No Reported Reaction, Motion Sickness Past Psychological History: No Psychological Hx Reported Smoking Status: Never smoker Past Alcohol Use History: None Reported Past Drug Use History: None Reported - Past Family History Sister(s) Family Medical History: Cancer Daughter(s) Family Medical History: Cancer Additional Family Medical History / Comment(s): at age 8. General Exam Limitations: no limitations General appearance: alert, in no apparent distress Head exam: Present: atraumatic, normocephalic, normal inspection Eye exam: Present: normal appearance, PERRL, EOMI. Absent: scleral icterus, conjunctival injection, periorbital swelling Respiratory exam: Present: normal lung sounds bilaterally. Absent: respiratory distress, wheezes, rales, rhonchi, stridor Cardiovascular Exam: Present: regular rate, normal rhythm, normal heart sounds. Absent: systolic murmur, diastolic murmur, rubs, gallop, clicks GI/Abdominal exam: Present: soft, normal bowel sounds. Absent: distended, tenderness, guarding, rebound, rigid Rectal exam: Present: normal inspection, normal rectal tone. Absent: hemorrhoids Neurological exam: Present: alert, oriented X3, CN II-XII intact Psychiatric exam: Present: normal affect, normal mood Skin exam: Present: warm, dry, intact, normal color. Absent: rash Course Vital Signs 12/10/21 12/10/21 12/10/21 10:22 12:42 14:07 Temperature 98.2 F Pulse Rate 84 76 79 Respiratory 20 16 20 Rate Blood Pressure 147/67 145/80 138/57 O2 Sat by Pulse 96 94 L 98 Oximetry 12/10/21 12/10/21 12/10/21 15:09 15:14 15:28 Temperature 98 F 98.9 F Pulse Rate 81 74 70 Respiratory 16 16 18 Rate Blood Pressure 133/62 115/83 121/57 O2 Sat by Pulse 95 98 95 Oximetry 12/10/21 12/10/21 15:50 17:15 Temperature 97.9 F Pulse Rate 77 82 Respiratory 18 20 Rate Blood Pressure 152/77 129/63 O2 Sat by Pulse 98 95 Oximetry Medical Decision Making - Medical Decision Making This is a 71-year-old patient presenting with low hemoglobin. Patient well- appearing and asymptomatic. Laboratory studies obtained. Hemoglobin is 6.4. Hemoccult is positive. No active bleeding from rectum. Potassium low at 3.0. Patient given Kader and 1 unit of packed red cells. Case discussed with Dr. Montes who will scope patient. Case discussed with Dr. Katz accepts admission. Eliquis is held. Dr. Dsouza is my attending. - Lab Data Result diagrams: 12/10/21 10:52 12/10/21 10:52 Lab Results 12/10/21 12/10/21 12/10/21 Range/Units 10:52 10:52 10:52 WBC 2.8 L (3.8-10.6) k/uL RBC 3.15 L (3.80-5.40) m/uL Hgb 6.4 L* (11.4-16.0) gm/dL Hct 23.0 L (34.0-46.0) % MCV 72.9 L (80.0-100.0) fL MCH 20.4 L (25.0-35.0) pg MCHC 27.9 L (31.0-37.0) g/dL RDW 19.4 H (11.5-15.5) % Plt Count 91 L (150-450) k/uL MPV 12.0 Neutrophils % 69 % Lymphocytes % 16 % Monocytes % 8 % Eosinophils % 5 % Basophils % 1 % Neutrophils # 1.9 (1.3-7.7) k/uL Lymphocytes # 0.4 L (1.0-4.8) k/uL Monocytes # 0.2 (0-1.0) k/uL Eosinophils # 0.1 (0-0.7) k/uL Basophils # 0.0 (0-0.2) k/uL Manual Slide Review Performed Hypochromasia Marked Poikilocytosis Slight Anisocytosis Slight Microcytosis Moderate PT 12.8 H (9.0-12.0) sec INR 1.2 H (<1.2) APTT 26.1 (22.0-30.0) sec Sodium 140 (137-145) mmol/L Potassium 3.0 L (3.5-5.1) mmol/L Chloride 98 (98-107) mmol/L Carbon Dioxide 31 H (22-30) mmol/L Anion Gap 11 mmol/L BUN 11 (7-17) mg/dL Creatinine 0.60 (0.52-1.04) mg/dL Est GFR (CKD-EPI)AfAm >90 (>60 ml/min/1.73 sqM) Est GFR (CKD-EPI)NonAf >90 (>60 ml/min/1.73 sqM) Glucose 116 H (74-99) mg/dL Calcium 8.9 (8.4-10.2) mg/dL Total Bilirubin 1.0 (0.2-1.3) mg/dL AST 37 H (14-36) U/L ALT 18 (4-34) U/L Alkaline Phosphatase 54 (38-126) U/L Total Protein 6.3 (6.3-8.2) g/dL Albumin 4.0 (3.5-5.0) g/dL Stool Occult Blood (Negative) Blood Type Blood Type Recheck Bld Type Recheck Status Antibody Screen Antibody Identification Direct Antiglob Test Crossmatch Spec Expiration Date 12/10/21 12/10/21 Range/Units 11:30 12:37 WBC (3.8-10.6) k/uL RBC (3.80-5.40) m/uL Hgb (11.4-16.0) gm/dL Hct (34.0-46.0) % MCV (80.0-100.0) fL MCH (25.0-35.0) pg MCHC (31.0-37.0) g/dL RDW (11.5-15.5) % Plt Count (150-450) k/uL MPV Neutrophils % % Lymphocytes % % Monocytes % % Eosinophils % % Basophils % % Neutrophils # (1.3-7.7) k/uL Lymphocytes # (1.0-4.8) k/uL Monocytes # (0-1.0) k/uL Eosinophils # (0-0.7) k/uL Basophils # (0-0.2) k/uL Manual Slide Review Hypochromasia Poikilocytosis Anisocytosis Microcytosis PT (9.0-12.0) sec INR (<1.2) APTT (22.0-30.0) sec Sodium (137-145) mmol/L Potassium (3.5-5.1) mmol/L Chloride (98-107) mmol/L Carbon Dioxide (22-30) mmol/L Anion Gap mmol/L BUN (7-17) mg/dL Creatinine (0.52-1.04) mg/dL Est GFR (CKD-EPI)AfAm (>60 ml/min/1.73 sqM) Est GFR (CKD-EPI)NonAf (>60 ml/min/1.73 sqM) Glucose (74-99) mg/dL Calcium (8.4-10.2) mg/dL Total Bilirubin (0.2-1.3) mg/dL AST (14-36) U/L ALT (4-34) U/L Alkaline Phosphatase (38-126) U/L Total Protein (6.3-8.2) g/dL Albumin (3.5-5.0) g/dL Stool Occult Blood Positive H (Negative) Blood Type A Positive Blood Type Recheck A Pos Bld Type Recheck Status No Antibody Screen POSITIVE Antibody Identification Anti-K Direct Antiglob Test Negative Crossmatch See Detail Spec Expiration Date 12/13/20212329 Disposition Clinical Impression: GI bleed, Low hemoglobin Disposition: ADMITTED IP TO THIS [facility] Condition: Good Decision Time: 20:27
[2021-12-10] MEDS ORDERED: METOPROLOL TARTRATE 50 MG TAB PO SCH (21:00)
[2021-12-11] MEDS: SODIUM CHLORIDE 0.9% 1,000 ML IV SCH ×2 (07:48→12:58)
[2021-12-11] MEDS: ATORVASTATIN 10 MG TAB PO SCH (09:31)
[2021-12-11] MEDS: METOPROLOL TARTRATE 50 MG TAB PO SCH ×2 (09:31→19:58)
[2021-12-11] MEDS: PANTOPRAZOLE 40 MG TABLET PO SCH (09:31)
[2021-12-11] MEDS: HYDROcodone/APAP 7.5-325MG 1 EACH TAB PO PRN ×2 (09:39→18:19)
[2021-12-11 12:03] LABS: Anisocytosis Slight; Basophils % (A) 1 %; Eosinophils # (A) 0.1 k/uL (0-0.7); Eosinophils % (A) 6 %; HCT 25.2 % (34.0-46.0); HGB 7.1 gm/dL (11.4-16.0); Hypochromasia Marked; Lymphocytes # (A) 0.5 k/uL (1.0-4.8); Lymphocytes % (A) 22 %; MCHC 28.1 g/dL (31.0-37.0); MCV 74.8 fL (80.0-100.0); Mean Platelet Volume 9.6; Microcytosis Moderate; Monocytes # (A) 0.2 k/uL (0-1.0); Monocytes % (A) 7 %; Neutrophils # (A) 1.4 k/uL (1.3-7.7); Neutrophils % (A) 63 %; Poikilocytosis Moderate; RBC 3.38 m/uL (3.80-5.40); WBC 2.2 k/uL (3.8-10.6)
[2021-12-11 12:12] LABS: ALT 15 U/L (4-34); AST 30 U/L (14-36); African American GFR (CKD) >90 (>60 ml/min/1.73 sqM); Albumin 3.6 g/dL (3.5-5.0); Albumin/Globulin Ratio 1.6; Alkaline Phosphatase 54 U/L (38-126); Anion Gap 8 mmol/L; Blood Urea Nitrogen 10 mg/dL (7-17); Calcium 8.3 mg/dL (8.4-10.2); Carbon Dioxide 33 mmol/L (22-30); Chloride 99 mmol/L (98-107); Globulin 2.2 g/dL; Glucose 97 mg/dL (74-99); Non-African American GFR(CKD) >90 (>60 ml/min/1.73 sqM); Potassium 3.2 mmol/L (3.5-5.1); Sodium 140 mmol/L (137-145); Total Bilirubin 1.1 mg/dL (0.2-1.3); Total Protein 5.8 g/dL (6.3-8.2)
[2021-12-11] MEDS ORDERED: POTASSIUM CHLORIDE ER 10 MEQ TAB.ER.PRT PO STA (12:33)
[2021-12-11 12:38] LABS: Platelet Count 88 k/uL (150-450)
--- NOTE | 2021-12-11 16:25 | P.GSCN ---
History of Present Illness Consult date: 12/11/21 History of present illness: REASON FOR CONSULTATION: GI bleed HISTORY OF PRESENT ILLNESS: The patient is a 71 year old female who comes in atrial fibrillation and on blood thinner Eliquis. She reports lifelong history of anemia. She presented with hemoglobin less than 7.0 at 6.4. She received 1 unit of blood. She has personal history of breast cancer. Patient reports being scheduled for upper and lower scopes and she is overdue. Her scopes were canceled due to severe bilateral lower extremity edema. She presented to the emergency room due to abnormal labs. Stool occult was positive for blood and hence her admission. She denies abdominal pain. She reports past history of cirrhosis over 30 years ago. She reports past history of stroke in 2017. No reports of gross blood in stools. No diarrhea. General surgery is consulted for GI bleed. PAST MEDICAL HISTORY: See list and reviewed PAST SURGICAL HISTORY: See list and reviewed MEDICATIONS: See list and reviewed ALLERGIES: See list and reviewed SOCIAL HISTORY: See list and reviewed FAMILY HISTORY: See list and reviewed REVIEW OF ORGAN SYSTEMS: CONSTITUTIONAL: No fevers or chills. No recent weight loss. EYES: Denies any trouble with vision. Wears glasses. HEENT: No difficulties with hearing. No nosebleeds. No difficulty swallowing. RESPIRATORY: Denies pneumonia. Denies any troubles with breathing or dyspnea on exertion. CARDIOVASCULAR: Has atrial fibrillation. Has hypertensive heart disease. Has congestive heart failure. GASTROINTESTINAL: Has gastroesophageal reflux disease including passed cirrhosis and chronic anemia GENITOURINARY: Denies any blood in urine or increased urinary frequency. NEUROLOGICAL: Past history of stroke 2017 without sequelae MUSCULOSKELETAL: Has back pain, stiffness or joint arthritis. SKIN: No current skin cancer. No rash. PSYCHIATRIC: Denies current depression or suicidal thoughts. ENDOCRINE: Denies current thyroid disorders. Denies any blood sugar glucose intolerance. HEME/LYMPHATIC: Denies any lumps and bumps around the neck. No recent deep venous thrombosis. ALLERGY/IMMUNOLOGY: No immunoglobulin therapy. No immune deficiencies. BREAST: Breast cancer with radiation. PHYSICAL EXAM: VITALS: Reviewed CONSTITUTIONAL: Well developed and in no acute distress. EYES: Conjuctivae without sclera icterus. Extraocular movements grossly intact. HEAD, EARS, NOSE, THROAT: Moist buccal mucosa. Head is atraumatic, normoceph alic. Hears conversational speech. No nasal drainage. NECK: Supple. No JV distention. No thyroidomegaly. RESPIRATORY: Non-labored respirations and equal bilateral excursions. No gross wheezes. CARDIOVASCULAR: Palpable 2+ radial pulses. ABDOMEN: Nontender. No peritonitis. LYMPH: No neck lymphadenopathy. MUSCULOSKELETAL: Has arm sling. SKIN: Warm and well perfused with good skin turgor. NEUROLOGIC: Cranial nerves II through XII grossly intact. No focal or lateralizing signs. PSYCH: Appropriate affect. Alert and oriented to person, place and time. Displays appropriate insight. CLINCAL LABS: Reviewed. Hemoglobin of 6.4-7.1 after 1 unit blood transfusion IMAGING: None available on this admission RADIOLOGY: None available on this admission RECORDS: previous old records reviewed with prior breast biopsy 2014 ASSESSMENT: 1. Anemia with gastrointestinal bleed 2. History of cirrhosis of the liver PLAN: 1. Recommend discontinue anticoagulants 2. She reports her last scope over 3-5 years ago. Recommend both upper and lower endoscopy on this admission 3. Recommend start of diet 4. Patient's elevated wrist with recent lower extremity edema and atrial fibrillation ADVANCE DIRECTIVE: Thank you for this kind consultation. Past Medical History Past Medical History: Atrial Fibrillation, Hearing Disorder / Deafness, Hypert ension, Liver Disease, Musculoskeletal Disorder, Osteoarthritis (OA) Additional Past Medical History / Comment(s): See Dr Randolph's H&P,SOB, bruises rt arm,scar tissure in the esophagus,HX OF CIRRHOSIS dx 2002 ASCITES, CHRONIC BACK PAIN, SINUS PROBLEMS. STATES BLOOD COUNTS LOW DUE TO CIRRHOSIS. VERTIGO,IONE History of Any Multi-Drug Resistant Organisms: None Reported Past Surgical History: Breast Surgery, Section, Orthopedic Surgery, Tubal Ligation Additional Past Surgical History / Comment(s): X2, SURGERY RT FEMUR WITH HARDWARE. Right femur repair,breast procedures,rt shoulder -2021,ORIF rt hip Past Anesthesia/Blood Transfusion Reactions: No Reported Reaction, Motion Sickness Past Psychological History: No Psychological Hx Reported Smoking Status: Never smoker Past Alcohol Use History: None Reported Past Drug Use History: None Reported - Past Family History Sister(s) Family Medical History: Cancer Daughter(s) Family Medical History: Cancer Additional Family Medical History / Comment(s): at age 8. Medications and Allergies Home Medications Medication Instructions Recorded Confirmed Type RX: HYDROcodone/APAP 7.5-325MG 1 tab PO QID PRN 08/31/21 12/10/21 History [[place] 7.5-325] RX: Pantoprazole [Protonix] 40 mg PO DAILY 08/31/21 12/10/21 History RX: Simvastatin [Zocor] 10 mg PO DAILY 08/31/21 12/10/21 History RX: Morphine Sulfate ER [Ms Contin] 15 mg PO TID PRN 09/29/21 12/10/21 History Apixaban [Eliquis] 5 mg PO BID #60 tab 09/30/21 12/10/21 Rx Furosemide [Lasix] 40 mg PO DAILY 12/10/21 12/10/21 History Metoprolol Tartrate [Lopressor] 50 mg PO BID 12/10/21 12/10/21 History Potassium Chloride ER [K-Dur 20] 20 meq PO DAILY 12/10/21 12/10/21 History Allergies Allergy/AdvReac Type Severity Reaction Status Date / Time No Known Allergies Allergy Verified 12/10/21 17:00 Surgical - Exam Vital Signs Temp Pulse Resp BP Pulse Ox 98.2 F 84 20 147/67 96 12/10/21 10:22 12/10/21 10:22 12/10/21 10:22 12/10/21 10:22 12/10/21 10:22 Results - Labs 12/11/21 11:04 12/11/21 11:04 Abnormal Lab Results - Last 24 Hours (Table) 12/10/21 12/11/21 12/11/21 Range/Units 11:30 11:04 11:04 WBC 2.2 L (3.8-10.6) k/uL RBC 3.38 L (3.80-5.40) m/uL Hgb 7.1 L (11.4-16.0) gm/dL Hct 25.2 L (34.0-46.0) % MCV 74.8 L (80.0-100.0) fL MCH 21.0 L (25.0-35.0) pg MCHC 28.1 L (31.0-37.0) g/dL RDW 19.0 H (11.5-15.5) % Plt Count 88 L (150-450) k/uL Lymphocytes # 0.5 L (1.0-4.8) k/uL Potassium 3.2 L (3.5-5.1) mmol/L Carbon Dioxide 33 H (22-30) mmol/L Calcium 8.3 L (8.4-10.2) mg/dL Total Protein 5.8 L (6.3-8.2) g/dL Crossmatch See Detail Diabetes panel 12/11/21 Range/Units 11:04 Sodium 140 (137-145) mmol/L Potassium 3.2 L (3.5-5.1) mmol/L Chloride 99 (98-107) mmol/L Carbon Dioxide 33 H (22-30) mmol/L BUN 10 (7-17) mg/dL Creatinine 0.52 (0.52-1.04) mg/dL Glucose 97 (74-99) mg/dL Calcium 8.3 L (8.4-10.2) mg/dL AST 30 (14-36) U/L ALT 15 (4-34) U/L Alkaline Phosphatase 54 (38-126) U/L Total Protein 5.8 L (6.3-8.2) g/dL Albumin 3.6 (3.5-5.0) g/dL Calcium panel 12/11/21 Range/Units 11:04 Calcium 8.3 L (8.4-10.2) mg/dL Albumin 3.6 (3.5-5.0) g/dL Pituitary panel 12/11/21 Range/Units 11:04 Sodium 140 (137-145) mmol/L Potassium 3.2 L (3.5-5.1) mmol/L Chloride 99 (98-107) mmol/L Carbon Dioxide 33 H (22-30) mmol/L BUN 10 (7-17) mg/dL Creatinine 0.52 (0.52-1.04) mg/dL Glucose 97 (74-99) mg/dL Calcium 8.3 L (8.4-10.2) mg/dL Adrenal panel 12/11/21 Range/Units 11:04 Sodium 140 (137-145) mmol/L Potassium 3.2 L (3.5-5.1) mmol/L Chloride 99 (98-107) mmol/L Carbon Dioxide 33 H (22-30) mmol/L BUN 10 (7-17) mg/dL Creatinine 0.52 (0.52-1.04) mg/dL Glucose 97 (74-99) mg/dL Calcium 8.3 L (8.4-10.2) mg/dL Total Bilirubin 1.1 (0.2-1.3) mg/dL AST 30 (14-36) U/L ALT 15 (4-34) U/L Alkaline Phosphatase 54 (38-126) U/L Total Protein 5.8 L (6.3-8.2) g/dL Albumin 3.6 (3.5-5.0) g/dL
[2021-12-12] MEDS: METOPROLOL TARTRATE 50 MG TAB PO SCH ×2 (08:00→20:00)
[2021-12-12] MEDS: ATORVASTATIN 10 MG TAB PO SCH (08:00)
[2021-12-12] MEDS: PANTOPRAZOLE 40 MG TABLET PO SCH (08:00)
[2021-12-12] MEDS: POTASSIUM CHLORIDE ER 20 MEQ TAB.ER PO SCH (08:00)
[2021-12-12] MEDS: HYDROcodone/APAP 7.5-325MG 1 EACH TAB PO PRN ×2 (08:03→14:05)
[2021-12-12] MEDS: SODIUM CHLORIDE 0.9% 1,000 ML IV SCH ×2 (08:50→20:01)
[2021-12-12 09:40] LABS: African American GFR (CKD) 107.8 (60.0-200.0); Anion Gap 8.6 mmol/L (10.00-18.00); BUN/Creat Ratio 19.5 Ratio (12.00-20.00); Blood Urea Nitrogen 11.7 mg/dL (9.0-27.0); Calcium 8.4 mg/dL (8.7-10.3); Carbon Dioxide 27.4 mmol/L (20.0-27.5); Potassium 3.9 mmol/L (3.5-5.5)
--- NOTE | 2021-12-12 09:43 | P.HPIM ---
History of Present Illness H&P Date: 12/11/21 Chief Complaint: Abnormal labs 71-year-old female with a past nuchal history of atrial fibrillation on Eliquis and GI bleed who presents to the ED for low hemoglobin. Patient states she had routine blood drawn from her primary care provider yesterday and was called today with report that her hemoglobin was 6.5. Patient states she feels well. Denies fever, chills, fatigue, lightheadedness, dizziness, chest pain, shortness of breath, abdominal pain, nausea, vomiting, diarrhea, blood in stool, blood in urine. Patient believes she had a GI bleed a few years ago which was treated by Dr. Hernandez. Denies chronic anti-inflammatory use and alcohol use. Workup completed in ED reveals a WBC of 2.8, hemoglobin of 6.4 with hematocrit of 23 and platelet count of 91, sodium 140, potassium 2.0, BUN/creatinine of 11/0.60 and blood glucose of 116; stool occult blood is positive Review of Systems REVIEW OF SYSTEMS: CONSTITUTIONAL: No fever, no malaise, no fatigue. HEENT: No recent visual problems or hearing problems. Denied any sore throat. CARDIOVASCULAR: No chest pain, orthopnea, PND, no palpitations, no syncope. PULMONARY: No shortness of breath, no cough, no hemoptysis. GASTROINTESTINAL: No diarrhea, no nausea, no vomiting, no abdominal pain. NEUROLOGICAL: No headaches, no weakness, no numbness. HEMATOLOGICAL: Denies any bleeding or petechiae. GENITOURINARY: Denies any burning micturition, frequency, or urgency. MUSCULOSKELETAL/RHEUMATOLOGICAL: Denies any joint pain, swelling, or any muscle pain. ENDOCRINE: Denies any polyuria or polydipsia. The rest of the 14-point review of systems is negative. Past Medical History Past Medical History: Atrial Fibrillation, Hearing Disorder / Deafness, Hypertension, Liver Disease, Musculoskeletal Disorder, Osteoarthritis (OA) Additional Past Medical History / Comment(s): See Dr Randolph's H&P,SOB, bruises rt arm,scar tissure in the esophagus,HX OF CIRRHOSIS dx 2001 ASCITES, CHRONIC BACK PAIN, SINUS PROBLEMS. STATES BLOOD COUNTS LOW DUE TO CIRRHOSIS. [place] History of Any Multi-Drug Resistant Organisms: None Reported Past Surgical History: Breast Surgery, Section, Orthopedic Surgery, Tubal Ligation Additional Past Surgical History / Comment(s): X2, SURGERY RT FEMUR WITH HARDWARE. Right femur repair,breast procedures,rt shoulder -2021,ORIF rt hip Past Anesthesia/Blood Transfusion Reactions: No Reported Reaction, Motion Sickness Past Psychological History: No Psychological Hx Reported Smoking Status: Never smoker Past Alcohol Use History: None Reported Past Drug Use History: None Reported - Past Family History Sister(s) Family Medical History: Cancer Daughter(s) Family Medical History: Cancer Additional Family Medical History / Comment(s): at age 8. Medications and Allergies Home Medications Medication Instructions Recorded Confirmed Type HYDROcodone/APAP 7.5-325MG [[place] 1 tab PO QID PRN 08/31/21 12/10/21 History 7.5-325] Pantoprazole [Protonix] 40 mg PO DAILY 08/31/21 12/10/21 History Simvastatin [Zocor] 10 mg PO DAILY 08/31/21 12/10/21 History Morphine Sulfate ER [Ms Contin] 15 mg PO TID PRN 09/29/21 12/10/21 History Apixaban [Eliquis] 5 mg PO BID #60 tab 09/30/21 12/10/21 Rx Furosemide [Lasix] 40 mg PO DAILY 12/10/21 12/10/21 History Metoprolol Tartrate [Lopressor] 50 mg PO BID 12/10/21 12/10/21 History Potassium Chloride ER [K-Dur 20] 20 meq PO DAILY 12/10/21 12/10/21 History Allergies Allergy/AdvReac Type Severity Reaction Status Date / Time No Known Allergies Allergy Verified 12/10/21 17:00 Physical Exam Vitals: Vital Signs Temp Pulse Pulse Resp BP BP Pulse Ox 12/11/21 08:00 98.1 F 85 18 154/81 90 L 12/11/21 02:00 98.7 F 79 16 143/73 90 L 12/10/21 20:36 20 12/10/21 19:45 98.7 F 78 16 170/92 95 12/10/21 17:15 97.9 F 82 20 129/63 95 12/10/21 15:50 77 18 152/77 98 12/10/21 15:28 70 18 121/57 95 12/10/21 15:14 98.9 F 74 16 115/83 98 12/10/21 15:09 98 F 81 16 133/62 95 12/10/21 14:07 79 20 138/57 98 12/10/21 12:42 76 16 145/80 94 L Intake and Output 12/10/21 12/11/21 12/11/21 22:59 06:59 14:59 Intake Total 283 750 Balance 283 750 Intake: Intake, IV Titration 750 Amount Sodium Chloride 0.9% 1, 750 000 ml @ 75 mls/hr IV . [id number] [facility] Rx#:[id number] Blood Product 283 Rc Pheresis 2 As3 Unit 283 [id number] Other: Weight 75.75 kg PHYSICAL EXAMINATION: GENERAL: The patient is alert and oriented x3, not in any acute distress. Well developed, well nourished. HEENT: Pupils are round and equally reacting to light. EOMI. No scleral icterus. No conjunctival pallor. Normocephalic, atraumatic. No pharyngeal erythema. No thyromegaly. CARDIOVASCULAR: S1 and S2 present. No murmurs, rubs, or gallops. PULMONARY: Chest is clear to auscultation, no wheezing or crackles. ABDOMEN: Soft, nontender, nondistended, normoactive bowel sounds. No palpable organomegaly. MUSCULOSKELETAL: No joint swelling or deformity. EXTREMITIES: No cyanosis, clubbing, or pedal edema. NEUROLOGICAL: Gross neurological examination did not reveal any focal deficits. SKIN: No rashes. Results CBC & Chem 7: 12/11/21 11:04 12/11/21 11:04 Labs: Abnormal Lab Results - Last 24 Hours (Table) 12/10/21 12/10/21 12/10/21 Range/Units 10:52 10:52 10:52 WBC 2.8 L (3.8-10.6) k/uL RBC 3.15 L (3.80-5.40) m/uL Hgb 6.4 L* (11.4-16.0) gm/dL Hct 23.0 L (34.0-46.0) % MCV 72.9 L (80.0-100.0) fL MCH 20.4 L (25.0-35.0) pg MCHC 27.9 L (31.0-37.0) g/dL RDW 19.4 H (11.5-15.5) % Plt Count 91 L (150-450) k/uL Lymphocytes # 0.4 L (1.0-4.8) k/uL PT 12.8 H (9.0-12.0) sec INR 1.2 H (<1.2) Potassium 3.0 L (3.5-5.1) mmol/L Carbon Dioxide 31 H (22-30) mmol/L Glucose 116 H (74-99) mg/dL AST 37 H (14-36) U/L Stool Occult Blood (Negative) Crossmatch 12/10/21 12/10/21 Range/Units 11:30 12:37 WBC (3.8-10.6) k/uL RBC (3.80-5.40) m/uL Hgb (11.4-16.0) gm/dL Hct (34.0-46.0) % MCV (80.0-100.0) fL MCH (25.0-35.0) pg MCHC (31.0-37.0) g/dL RDW (11.5-15.5) % Plt Count (150-450) k/uL Lymphocytes # (1.0-4.8) k/uL PT (9.0-12.0) sec INR (<1.2) Potassium (3.5-5.1) mmol/L Carbon Dioxide (22-30) mmol/L Glucose (74-99) mg/dL AST (14-36) U/L Stool Occult Blood Positive H (Negative) Crossmatch See Detail Thrombosis Risk Factor Assmnt - Choose All That Apply Each Risk Factor Represents 2 Points: Age 61-74 years Thrombosis Risk Factor Assessment Total Risk Factor Score: 2 Thrombosis Risk Factor Assessment Level: Low Risk Assessment and Plan Assessment: 1. Severe symptomatic anemia/GI bleed - Patient is on anticoagulation for atrial fibrillation which has been placed on hold - Type crossmatch and transfuse 1 unit packed RBCs; monitor H&H closely; Protonix 40 mg daily - Surgery consulted for possible colonoscopy 2. Pancytopenia/history of liver disease; diagnosed with liver cirrhosis over 30 years ago 3. Hypertension; Lopressor 100 mg twice a day 4. Chronic atrial fibrillation; rate controlled on Lopressor 100 mg twice a day; patient receive systemic anticoagulation which hasn't placed on hold due to GI bleed 5. Hyperlipidemia; continue home statin therapy 6. Osteoarthritis; patient takes [place] and [place] Contin DVT prophylaxis; SCDs only, given GI bleed CODE STATUS; full code
[2021-12-12 10:09] LABS: HCT 24.4 % (37.2-46.3); MCH 21.1 pg (27.0-32.0); MCHC 28.7 g/dL (32.0-37.0); MCV 73.7 fL (80.0-97.0); NRBC Per 100 WBC 0 /100 WBCS (0.0-0.0); Platelet Count 111 X 10*3/uL (140-440); RBC 3.31 X 10*6/uL (4.10-5.20); RDW 20.9 % (11.5-14.5)
--- NOTE | 2021-12-12 13:44 | P.PN ---
Subjective Progress Note Date: 12/12/21 Principal diagnosis: Severe anemia/GI bleed 71-year-old female with a past nuchal history of atrial fibrillation on Eliquis and GI bleed who presents to the ED for low hemoglobin. Patient states she had routine blood drawn from her primary care provider yesterday and was called today with report that her hemoglobin was 6.5. Patient states she feels well. Denies fever, chills, fatigue, lightheadedness, dizziness, chest pain, shortness of breath, abdominal pain, nausea, vomiting, diarrhea, blood in stool, blood in urine. Patient believes she had a GI bleed a few years ago which was treated by Dr. Hernandez. Denies chronic anti-inflammatory use and alcohol use. Workup completed in ED reveals a WBC of 2.8, hemoglobin of 6.4 with hematocrit of 23 and platelet count of 91, sodium 140, potassium 2.0, BUN/creatinine of 11/0.60 and blood glucose of 116; stool occult blood is positive -- Patient has been evaluated by general surgery and is recommended EGD/colonoscopy; hemoglobin is stable at 7.1 after transfusion of 1 unit of packed RBCs - Anticoagulation remains on hold; continue to monitor CBC and transfuse if hemoglobin is less than 7.0 Objective - Vital Signs Vital signs: Vital Signs Temp 97.9 F 12/12/21 08:00 Pulse 97 12/12/21 08:00 Resp 18 12/12/21 08:00 BP 163/85 12/12/21 08:00 Pulse Ox 96 12/12/21 08:00 FiO2 Intake & Output 12/11/21 12/12/21 12/12/21 18:59 06:59 18:59 Intake Total 600 400 Balance 600 400 Intake: Intake, IV Titration 600 400 Amount Sodium Chloride 0.9% 1, 600 400 000 ml @ 75 mls/hr IV . [id number] [facility] Rx#:[id number] - Exam GENERAL: The patient is alert and oriented x3, not in any acute distress. Well developed, well nourished. HEENT: Pupils are round and equally reacting to light. EOMI. No scleral icterus. No conjunctival pallor. Normocephalic, atraumatic. No pharyngeal erythema. No thyromegaly. CARDIOVASCULAR: S1 and S2 present. No murmurs, rubs, or gallops. PULMONARY: Chest is clear to auscultation, no wheezing or crackles. ABDOMEN: Soft, nontender, nondistended, normoactive bowel sounds. No palpable organomegaly. MUSCULOSKELETAL: No joint swelling or deformity. EXTREMITIES: No cyanosis, clubbing, or pedal edema. NEUROLOGICAL: Gross neurological examination did not reveal any focal deficits. SKIN: No rashes. - Labs CBC & Chem 7: 12/12/21 04:03 12/12/21 04:03 Labs: Abnormal Lab Results - Last 24 Hours (Table) 12/11/21 12/11/21 12/12/21 Range/Units 11:04 11:04 04:03 WBC 2.2 L (3.8-10.6) k/uL RBC 3.38 L (3.80-5.40) m/uL Hgb 7.1 L (11.4-16.0) gm/dL Hct 25.2 L (34.0-46.0) % MCV 74.8 L (80.0-100.0) fL MCH 21.0 L (25.0-35.0) pg MCHC 28.1 L (31.0-37.0) g/dL RDW 19.0 H (11.5-15.5) % Plt Count 88 L (150-450) k/uL Lymphocytes # 0.5 L (1.0-4.8) k/uL Potassium 3.2 L (3.5-5.1) mmol/L Carbon Dioxide 33 H (22-30) mmol/L Anion Gap 8.60 L (10.00-18.00) mmol/L Calcium 8.3 L 8.4 L (8.4-10.2) mg/dL Total Protein 5.8 L (6.3-8.2) g/dL Assessment and Plan Assessment: 1. Severe symptomatic anemia/GI bleed - Patient is on anticoagulation for atrial fibrillation which has been placed on hold - Type crossmatch and transfuse 1 unit packed RBCs; monitor H&H closely; Protonix 40 mg daily - Surgery consulted for possible colonoscopy 2. Pancytopenia/history of liver disease; diagnosed with liver cirrhosis over 30 years ago 3. Hypertension; Lopressor 100 mg twice a day 4. Chronic atrial fibrillation; rate controlled on Lopressor 100 mg twice a day; patient receive systemic anticoagulation which hasn't placed on hold due to GI bleed 5. Hyperlipidemia; continue home statin therapy 6. Osteoarthritis; patient takes [place] and [place] Contin DVT prophylaxis; SCDs only, given GI bleed CODE STATUS; full code
--- NOTE | 2021-12-12 14:03 | P.PN ---
Subjective Progress Note Date: 12/12/21 CHIEF COMPLAINT: GI bleed HISTORY OF PRESENT ILLNESS: The patient is a 71 year old female who presented with anemia, hemoglobin 6.4. She was on blood thinners. Since admission, she denies any blood in stools. She is tolerating diet. She received 1 unit blood transfusion. REVIEW OF ORGAN SYSTEMS: No fevers or chills. Denies chest pain. Denies shortness of breath. PHYSICAL EXAM: VITALS: Reviewed CONSTITUTIONAL: Well developed and in no acute distress. EYES: Conjuctivae without sclera icterus. Extraocular movements grossly intact. HEAD, EARS, NOSE, THROAT: Moist buccal mucosa. Head is atraumatic, normocephalic. Hears conversational speech. No nasal drainage. RESPIRATORY: Non-labored respirations and equal bilateral excursions. No gross wheezes. CARDIOVASCULAR: Palpable 2+ radial pulses. ABDOMEN: Nontender. No peritonitis. MUSCULOSKELETAL: Has arm sling. SKIN: Warm and well perfused with good skin turgor. NEUROLOGIC: Cranial nerves II through XII grossly intact. No focal or lateralizing signs. PSYCH: Appropriate affect. Alert and oriented to person, place and time. Displays appropriate insight. CLINCAL LABS: Reviewed. Hemoglobin of 6.4-7.1, now 7.0 today. ASSESSMENT: 1. Anemia with gastrointestinal bleed 2. History of cirrhosis of the liver 3. Status post blood transfusion PLAN: 1. Continue to hold anticoagulants. 2. Recommend upper and lower endoscopy during this admission. 3. Patient is elevated risk due to atrial fibrillation, history of congestive heart failure including cirrhosis of the liver Objective - Vital Signs Vital signs: Vital Signs Temp 97.9 F 12/12/21 08:00 Pulse 97 12/12/21 08:00 Resp 18 12/12/21 08:00 BP 163/85 12/12/21 08:00 Pulse Ox 96 12/12/21 08:00 FiO2 Intake & Output 12/11/21 12/12/21 12/12/21 18:59 06:59 18:59 Intake Total 600 400 Balance 600 400 Intake: Intake, IV Titration 600 400 Amount Sodium Chloride 0.9% 1, 600 400 000 ml @ 75 mls/hr IV . [id number] [facility] Rx#:[id number] - Labs CBC & Chem 7: 12/12/21 04:03 12/12/21 04:03 Labs: Abnormal Lab Results - Last 24 Hours (Table) 12/12/21 12/12/21 Range/Units 04:03 04:03 WBC 4.00 L (4.50-10.00) X 10*3/uL RBC 3.31 L (4.10-5.20) X 10*6/uL Hgb 7.0 L (12.0-15.0) g/dL Hct 24.4 L (37.2-46.3) % MCV 73.7 L (80.0-97.0) fL MCH 21.1 L (27.0-32.0) pg MCHC 28.7 L (32.0-37.0) g/dL RDW 20.9 H (11.5-14.5) % Plt Count 111 L (140-440) X 10*3/uL Anion Gap 8.60 L (10.00-18.00) mmol/L Calcium 8.4 L (8.7-10.3) mg/dL
[2021-12-12] MEDS: MORPHINE SULFATE ER 15 MG TABLET PO PRN (20:00)
[2021-12-13] MEDS: HYDROcodone/APAP 7.5-325MG 1 EACH TAB PO PRN ×4 (02:09→21:22)
[2021-12-13] MEDS: ATORVASTATIN 10 MG TAB PO SCH (07:44)
[2021-12-13] MEDS: POTASSIUM CHLORIDE ER 20 MEQ TAB.ER PO SCH (07:45)
[2021-12-13] MEDS: METOPROLOL TARTRATE 50 MG TAB PO SCH ×2 (07:45→21:16)
[2021-12-13] MEDS: PANTOPRAZOLE 40 MG TABLET PO SCH (07:45)
--- NOTE | 2021-12-13 08:42 | P.PN ---
Subjective Progress Note Date: 12/13/21 Principal diagnosis: GI bleed Hemoglobin of 7 yesterday after 1 unit of blood. Awaiting consult with Dr. Menendez. Patient would like to restart her Lasix and mild dyspnea on exertion. She is tolerating her diet. Objective - Vital Signs Vital signs: Vital Signs Temp 98.4 F 12/13/21 07:59 Pulse 85 12/13/21 07:59 Resp 13 12/13/21 07:59 BP 161/90 12/13/21 07:59 Pulse Ox 94 L 12/13/21 07:59 FiO2 Intake & Output 12/12/21 12/13/21 12/13/21 18:59 06:59 18:59 Output Total 300 Balance -300 Output: Urine 300 - Constitutional General appearance: Present: cooperative - Respiratory Respiratory: bilateral: CTA - Cardiovascular Rhythm: irregularly irregular Heart sounds: normal: S1, S2 Abnormal Heart Sounds: Absent: S3 Gallop - Gastrointestinal General gastrointestinal: Present: soft. Absent: tenderness - Psychiatric Psychiatric: Present: A&O x's 3, appropriate affect, intact judgment & insight - Labs CBC & Chem 7: 12/12/21 04:03 12/12/21 04:03 Labs: Abnormal Lab Results - Last 24 Hours (Table) 12/12/21 12/12/21 Range/Units 04:03 04:03 WBC 4.00 L (4.50-10.00) X 10*3/uL RBC 3.31 L (4.10-5.20) X 10*6/uL Hgb 7.0 L (12.0-15.0) g/dL Hct 24.4 L (37.2-46.3) % MCV 73.7 L (80.0-97.0) fL MCH 21.1 L (27.0-32.0) pg MCHC 28.7 L (32.0-37.0) g/dL RDW 20.9 H (11.5-14.5) % Plt Count 111 L (140-440) X 10*3/uL Anion Gap 8.60 L (10.00-18.00) mmol/L Calcium 8.4 L (8.7-10.3) mg/dL Assessment and Plan (1) GI bleed Current Visit: Yes Status: Acute Code(s): K92.2 - GASTROINTESTINAL HEMORRHAGE, UNSPECIFIED SNOMED Code(s): 24853660 (2) Low hemoglobin Current Visit: Yes Status: Acute Code(s): D64.9 - ANEMIA, UNSPECIFIED SN OMED Code(s): 704920388 (3) Atrial fibrillation Current Visit: Yes Status: Acute Code(s): I48.91 - UNSPECIFIED ATRIAL FIBRILLATION SNOMED Code(s): 51766612 Plan: Check CBC and CMP in a.m. Await Dr. Menendez's recommendation Restart Lasix Nurse practitioner saw and evaluated the patient. Physician in agreement with plan.
[2021-12-13 09:08] LABS: Anisocytosis Slight; HCT 26.7 % (34.0-46.0); HGB 7.3 gm/dL (11.4-16.0); Hypochromasia Marked; MCH 20.5 pg (25.0-35.0); MCHC 27.4 g/dL (31.0-37.0); MCV 74.8 fL (80.0-100.0); Mean Platelet Volume 10.4; Microcytosis Moderate; Poikilocytosis Slight; RBC 3.57 m/uL (3.80-5.40); RDW 19.2 % (11.5-15.5); WBC 3.8 k/uL (3.8-10.6)
[2021-12-13 09:12] LABS: Platelet Count 92 k/uL (150-450)
[2021-12-13] MEDS: FUROSEMIDE 40 MG TAB PO SCH (10:20)
--- NOTE | 2021-12-13 12:35 | P.PN ---
Subjective Progress Note Date: 12/13/21 CHIEF COMPLAINT: Anemia HISTORY OF PRESENT ILLNESS: Patient had a hemoglobin of 6.4 on admission it has come up to 7.3. She did require 1 unit of blood on admission. Stool for occult blood was positive. She reports having bowel movements with no blood or black stools. She denies any nausea or vomiting. Denies abdominal pain. She thinks that her last EGD and colonoscopy were in 2017. Her Eliquis is currently on hold. She takes that for atrial fibrillation. She is currently tolerating regular diet. Afebrile. WBC is 3.8 Hgb 7.3 platelets 92 PHYSICAL EXAM: VITAL SIGNS: Reviewed. GENERAL: Well-developed in no acute distress. HEENT: No sclera icterus. Extraocular movements grossly intact. Moist buccal mucosa. Head is atraumatic, normocephalic. ABDOMEN: Soft. Nondistended. Nontender. NEUROLOGIC: Alert and oriented. Cranial nerves II through XII grossly intact. ASSESSMENT: 1. Anemia with gastrointestinal bleed 2. History of liver cirrhosis PLAN: -Further recommendation regarding endoscopies will be forthcoming per surgeon -Continue to hold Eliquis -Continue to monitor hemoglobin -Continue to monitor for any signs or symptoms of bleeding -Continue PPI Physician Gas Regulator Repairer note has been reviewed by physician. Signing provider agrees with the documented findings, assessment, and plan of care. I have personally seen and examined the patient, reviewed the DISTRIBUTION LEAD /PAs history, exam and MDM and agree with the assessment and plan as written. Based on total visit time, I have performed more than 50% of the visit. As above: Patient with anemia on anticoagulation. Heme positive stools. Will proceed with upper and lower endoscopy. Objective - Vital Signs Vital signs: Vital Signs Temp 98.4 F 12/13/21 07:59 Pulse 85 12/13/21 07:59 Resp 13 12/13/21 07:59 BP 161/90 12/13/21 07:59 Pulse Ox 94 L 12/13/21 07:59 FiO2 Intake & Output 12/12/21 12/13/21 12/13/21 18:59 06:59 18:59 Output Total 300 Balance -300 Output: Urine 300 - Labs CBC & Chem 7: 12/13/21 08:49 12/12/21 04:03 Labs: Abnormal Lab Results - Last 24 Hours (Table) 12/13/21 Range/Units 08:49 RBC 3.57 L (3.80-5.40) m/uL Hgb 7.3 L (11.4-16.0) gm/dL Hct 26.7 L (34.0-46.0) % MCV 74.8 L (80.0-100.0) fL MCH 20.5 L (25.0-35.0) pg MCHC 27.4 L (31.0-37.0) g/dL RDW 19.2 H (11.5-15.5) % Plt Count 92 L (150-450) k/uL
[2021-12-13] MEDS: SODIUM CHLORIDE 0.9% 1,000 ML IV SCH (13:32)
--- NOTE | 2021-12-13 14:27 | CDI ---
Documentation Clarification Form Date: 12/13/2021 02:17:36 PM From: Minerva Mcdonald CCS, CCDS Admit Date: 12/10/2021 05:12:00 PM Patient Name: Darlene Bravo Visit Number: [id number] Discharge Date: ATTENTION: The Clinical Documentation Specialists (CDI) and [facility] Coding Staff appreciate your assistance in clarifying documentation. Please respond to the clarification below the line at the bottom and electronically sign. The CDI & [facility] Coding staff will review the response and follow-up if needed. Please note: Queries are made part of the Legal Health Record. If you have any questions, please contact the author of this message via ITS. Dr. Jhonatan Katz: Severe symptomatic Anemia/GI bleed in patient on Anticoagulation for Atrial Fibrillation (placed on hold) is documented in the 12/11 History & Physical without further specificity or cause. Additional specificity regarding the Type and Acuity of Anemia is requested. History/Risk Factors per the 12/11 H/P: Atrial Fibrillation, Hypertension, Cirrhosis w/Ascites, Low Back pain, Vertigo, TUOLUMNE, Osteoarthritis. Clinical indicators: Presented to the ED on 12/10 with GI bleed and Low Hemoglobin per blood draw by PCP, Hgb 6.5. Admit with GI Bleed, Low Hemoglobin Hemoglobin 12/10: 6.4; 12/11: 7.1; 12/12: 7.0; 12/13: 7.3. Hematocrit 12/10: 23.0. 12/11: 25.2; 12.12: 24.4; 12/13: 26.7 Treatment 12/10: Surgical Consult, Home meds, Home Eliquis held, Received Blood Transfusion 1 unit PRBCs. Please clarify the Type & Acuity of Anemia: [ ] Acute blood loss anemia, please specify the cause: [ x ] Acute on chronic blood loss anemia, please specify the cause: GI source [ ] Hemolytic anemia [ ] Drug induced anemia, please specify the drug: [ ] Anemia of chronic disease, please specify: [ ] Other, please specify [ ] Unable to determine: (Template Last Revised: April 2020) MTDD
[2021-12-14] MEDS: SODIUM CHLORIDE 0.9% 1,000 ML IV SCH ×2 (01:19→14:48)
[2021-12-14] MEDS: MORPHINE SULFATE ER 15 MG TABLET PO PRN ×2 (07:00→14:46)
[2021-12-14] MEDS: METOPROLOL TARTRATE 50 MG TAB PO SCH ×2 (07:00→20:26)
[2021-12-14] MEDS: ATORVASTATIN 10 MG TAB PO SCH (07:01)
[2021-12-14] MEDS: POTASSIUM CHLORIDE ER 20 MEQ TAB.ER PO SCH (07:01)
[2021-12-14] MEDS: PANTOPRAZOLE 40 MG TABLET PO SCH (07:01)
[2021-12-14] MEDS: FUROSEMIDE 40 MG TAB PO SCH (07:01)
[2021-12-14] MEDS: HYDROcodone/APAP 7.5-325MG 1 EACH TAB PO PRN ×2 (08:02→16:15)
--- NOTE | 2021-12-14 08:18 | P.PN ---
Subjective Progress Note Date: 12/14/21 Principal diagnosis: GI bleed This is 71-year-old white female with underlying history of GI bleed history of liver disease. The patient states she feels slightly better than yesterday. Endoscopy she is scheduled for the a.m. area she is tolerating liquid diet at this time. Objective - Vital Signs Vital signs: Vital Signs Temp 99.3 F 12/14/21 01:16 Pulse 76 12/14/21 01:16 Resp 18 12/14/21 01:16 BP 151/84 12/14/21 01:16 Pulse Ox 95 12/14/21 01:16 FiO2 Intake & Output 12/13/21 12/14/21 12/14/21 18:59 06:59 18:59 Intake Total 360 Output Total 0 Balance 360 0 Intake: Oral 360 Output: Urine 0 Other: # Voids 5 - Constitutional General appearance: Present: average body habitus - EENT Eyes: Absent: abnormal pupil - Neck Neck: Absent: lymphadenopathy - Respiratory Respiratory: bilateral: CTA - Cardiovascular Rhythm: regular Heart sounds: normal: S1, S2 Abnormal Heart Sounds: Absent: S3 Gallop - Gastrointestinal General gastrointestinal: Present: soft. Absent: tenderness - Integumentary Integumentary: Absent: cellulitis - Psychiatric Psychiatric: Present: A&O x's 3 - Labs CBC & Chem 7: 12/13/21 08:49 12/12/21 04:03 Labs: Abnormal Lab Results - Last 24 Hours (Table) 12/13/21 Range/Units 08:49 RBC 3.57 L (3.80-5.40) m/uL Hgb 7.3 L (11.4-16.0) gm/dL Hct 26.7 L (34.0-46.0) % MCV 74.8 L (80.0-100.0) fL MCH 20.5 L (25.0-35.0) pg MCHC 27.4 L (31.0-37.0) g/dL RDW 19.2 H (11.5-15.5) % Plt Count 92 L (150-450) k/uL Assessment and Plan (1) Atrial fibrillation Current Visit: Yes Status: Acute Code(s): I48.91 - UNSPECIFIED ATRIAL FIBRILLATION SNOMED Code(s): 77477587 (2) GI bleed Current Visit: Yes Status: Acute Code(s): K92.2 - GASTROINTESTINAL HEMORRHAGE, UNSPECIFIED SNOMED Code(s): 28307567 Plan: Feosol added to regimen.. Await endoscopy in the a.m. See orders otherwise
[2021-12-14] MEDS ORDERED: PEG 3350 (236 GM/BTL) + LYTES 4,000 ML BOTTLE PO ONE (10:00)
--- NOTE | 2021-12-14 11:16 | P.PN ---
Subjective Progress Note Date: 12/14/21 CHIEF COMPLAINT: Anemia HISTORY OF PRESENT ILLNESS: Patient had a hemoglobin of 6.4 on admission it has come up to 7.3. She did require 1 unit of blood on admission. Stool for occult blood was positive. She reports having bowel movements with no blood or black stools. She denies any nausea or vomiting. Denies abdominal pain. Afebrile. No new labs PHYSICAL EXAM: VITAL SIGNS: Reviewed. GENERAL: Well-developed in no acute distress. HEENT: No sclera icterus. Extraocular movements grossly intact. Moist buccal mucosa. Head is atraumatic, normocephalic. ABDOMEN: Soft. Nondistended. Nontender. NEUROLOGIC: Alert and oriented. Cranial nerves II through XII grossly intact. ASSESSMENT: 1. Anemia with fecal occult blood positive and on anticoagulation. No active bleeding 2. History of liver cirrhosis PLAN: -EGD and colonoscopy scheduled for tomorrow, 12/15/[address] Menendez -Start GoLYTELY prep today -Clear liquid diet today -Nothing by mouth after midnight -Continue to hold Eliquis -Continue to monitor hemoglobin -Continue to monitor for any signs or symptoms of bleeding -Continue PPI Physician Data Collection Specialist note has been reviewed by physician. Signing provider agrees with the documented findings, assessment, and plan of care. I have personally seen and examined the patient, reviewed the AEROSPACE ENGINEER OFFICER ARMAMENT /PAs history, exam and MDM and agree with the assessment and plan as written. Based on total visit time, I have performed more than 50% of the visit. As above: Patient doing well today. Starting bowel prep. We'll proceed with upper and lower endoscopy tomorrow. Objective - Vital Signs Vital signs: Vital Signs Temp 98.8 F 12/14/21 08:00 Pulse 84 12/14/21 08:00 Resp 18 12/14/21 08:00 BP 161/92 12/14/21 08:00 Pulse Ox 95 12/14/21 08:00 FiO2 Intake & Output 12/13/21 12/14/21 12/14/21 18:59 06:59 18:59 Intake Total 360 Output Total 0 Balance 360 0 Intake: Oral 360 Output: Urine 0 Other: # Voids 5 - Labs CBC & Chem 7: 12/13/21 08:49 12/12/21 04:03
[2021-12-14] MEDS: FERROUS SULFATE 325 MG TAB PO SCH (16:15)
[2021-12-14] MEDS ORDERED: ONDANSETRON 4 MG/2 ML VIAL IVP PRN (19:02)
[2021-12-15] MEDS: MORPHINE SULFATE ER 15 MG TABLET PO PRN (03:28)
--- NOTE | 2021-12-15 06:38 | P.PN ---
Subjective Principal diagnosis: GI bleed This is 71-year-old white female with underlying history of GI bleed history of liver disease. The patient states she feels slightly better than yesterday. Endoscopy she is scheduled for today. area she is tolerating liquid diet at this time. Objective - Vital Signs Vital signs: Vital Signs Temp 98.3 F 12/15/21 02:03 Pulse 79 12/15/21 02:03 Resp 17 12/15/21 02:03 BP 123/62 12/15/21 02:03 Pulse Ox 95 12/15/21 02:03 FiO2 Intake & Output 12/14/21 12/14/21 12/15/21 06:59 18:59 06:59 Output Total 0 Balance 0 Output: Urine 0 Other: # Voids 3 2 - Constitutional General appearance: Present: average body habitus - EENT Eyes: Absent: abnormal pupil - Neck Neck: Absent: lymphadenopathy - Respiratory Respiratory: bilateral: CTA - Cardiovascular Rhythm: irregularly irregular Heart sounds: normal: S1, S2 Abnormal Heart Sounds: Absent: S3 Gallop - Gastrointestinal General gastrointestinal: Present: soft. Absent: tenderness - Integumentary Integumentary: Absent: cellulitis - Labs CBC & Chem 7: 12/13/21 08:49 12/12/21 04:03 Assessment and Plan (1) Atrial fibrillation Current Visit: Yes Status: Acute Code(s): I48.91 - UNSPECIFIED ATRIAL FIBRILLATION SNOMED Code(s): 77693113 (2) GI bleed Current Visit: Yes Status: Acute Code(s): K92.2 - GASTROINTESTINAL HEM ORRHAGE, UNSPECIFIED SNOMED Code(s): 29237169 Plan: Feosol added to regimen.. Await endoscopy later today See orders otherwise. Anticipate discharge in next 24 hours.
[2021-12-15] MEDS: SODIUM CHLORIDE 0.9% 1,000 ML IV SCH (07:27)
[2021-12-15] MEDS: HYDROcodone/APAP 7.5-325MG 1 EACH TAB PO PRN (07:47)
[2021-12-15] MEDS: FERROUS SULFATE 325 MG TAB PO SCH (07:47)
[2021-12-15] MEDS: POTASSIUM CHLORIDE ER 20 MEQ TAB.ER PO SCH (07:47)
[2021-12-15] MEDS: ATORVASTATIN 10 MG TAB PO SCH (07:47)
[2021-12-15] MEDS: FUROSEMIDE 40 MG TAB PO SCH (07:47)
[2021-12-15] MEDS: PANTOPRAZOLE 40 MG TABLET PO SCH (07:47)
[2021-12-15] MEDS: METOPROLOL TARTRATE 50 MG TAB PO SCH (07:47)
[2021-12-15 08:24] LABS: African American GFR (CKD) >90 (>60 ml/min/1.73 sqM); Anion Gap 9 mmol/L; Blood Urea Nitrogen 7 mg/dL (7-17); Calcium 8.7 mg/dL (8.4-10.2); Carbon Dioxide 31 mmol/L (22-30); Chloride 99 mmol/L (98-107); Glucose 103 mg/dL (74-99); Non-African American GFR(CKD) >90 (>60 ml/min/1.73 sqM); Sodium 139 mmol/L (137-145)
[2021-12-15 08:37] LABS: Anisocytosis Slight; HCT 26.7 % (34.0-46.0); HGB 7.2 gm/dL (11.4-16.0); Hypochromasia Marked; MCH 20.2 pg (25.0-35.0); MCHC 26.9 g/dL (31.0-37.0); MCV 74.9 fL (80.0-100.0); Mean Platelet Volume 8.3; Microcytosis Moderate; Poikilocytosis Slight; RBC 3.56 m/uL (3.80-5.40); RDW 19.3 % (11.5-15.5); WBC 3.1 k/uL (3.8-10.6)
[2021-12-15 08:39] LABS: Platelet Count 70 k/uL (150-450)
[2021-12-15] MEDS ORDERED: PROPOFOL 10 MG/ML 20 ML VIAL IV ONE (11:15)
[2021-12-15] MEDS ORDERED: LIDOCAINE 2% INJ 20 MG/ML (2 ML VIAL) ONE (11:15)
[2021-12-15] MEDS ORDERED: IV FLUID CONTINUATION 700 ML IV ONE (11:16)
--- NOTE | 2021-12-15 11:53 | P.PCN ---
Date of Procedure: 12/15/21 Procedure(s) Performed: PREOPERATIVE DIAGNOSIS: Anemia, GI bleed POSTOPERATIVE DIAGNOSIS: Mild gastritis, small hiatal hernia, tortuous colon PROCEDURE: 1. EGD with biopsy 2. Colonoscopy ANESTHESIA: MAC SURGEON: Dorian Menendez M.D. SPECIMENS: Antrum ENDOSCOPIC PROCEDURE: The patient was on the endoscopy table in the left decubitus position. The Olympus gastroscope was inserted into the oropharynx and passed under direct visualization to the region of the third portion of the duodenum. From that point the scope was slowly withdrawn inspecting all surfaces carefully. There were no neoplastic inflammatory or polypoid lesions throughout the duodenum. The pylorus was widely patent. The stomach was carefully inspected. There was mild gastritis present. A biopsy of the antrum took place to rule out H. pylori. Retroflexion revealed a small hiatal hernia. The esophagus was then carefully examined. There were no neoplastic inflammatory or polypoid lesions throughout the visualized esophagus. The patient was kept on the endoscopy table in the left decubitus position. The Olympus colonoscope was inserted into the anus and passed under direct visualization to the base of the cecum. The appendiceal orifice was visualized. From that point the scope was slowly withdrawn inspecting all surfaces carefully. There were no neoplastic inflammatory or polypoid lesions throughout the cecum, ascending, transverse, descending, sigmoid and rectum. There was no visible diverticulosis noted. The patient's colon was fairly tortuous. Digital rectal examination was normal. The patient was taken to the recovery room in stable condition per anesthesia guidelines. RECOMMENDATIONS: Resume diet. Stable for discharge. Continue anemia workup.
[2021-12-15 12:27] VITALS: BP 153/71; PULSE 71; RESP 16; TEMP 98.4
--- NOTE | 2021-12-15 12:32 | P.DS ---
Providers Date of admission: 12/10/21 17:12 Attending physician: Jhonatan Katz Consults: 12/10/21 15:38 Consult Physician Routine Consulting Provider: Dorian Menendez Consult Reason/Comments: GI bleed Do you want consulting provider notified?: Already Contacted Primary care physician: Jhonatan Katz - Discharge Diagnosis(es) (1) Atrial fibrillation Current Visit: Yes Status: Acute (2) GI bleed Current Visit: Yes Status: Acute Hospital Course: Patient admitted for GI bleed, we stabilized with PRBC and ended up doing EGD with colonscopy after several days of stabilization. The patient was advanced on diet and will discharged. Will temporarily hold anticoagulation until hgb stabilizes more. Followup in 2-3 days Patient Condition at Discharge: Good Plan - Discharge Summary New Discharge Prescriptions: New Ferrous Sulfate [Iron (65 MG Elemental)] 325 mg PO BID-W/MEALS #60 tab Continue Simvastatin [Zocor] 10 mg PO DAILY Pantoprazole [Protonix] 40 mg PO DAILY Morphine Sulfate ER [Ms Contin] 15 mg PO TID PRN PRN Reason: Pain Furosemide [Lasix] 40 mg PO DAILY HYDROcodone/APAP 7.5-325MG [[place] 7.5-325] 1 tab PO QID PRN PRN Reason: Pain Potassium Chloride ER [K-Dur 20] 20 meq PO DAILY Metoprolol Tartrate [Lopressor] 50 mg PO BID Discontinued Apixaban [Eliquis] 5 mg PO BID #60 tab Discharge Medication List HYDROcodone/APAP 7.5-325MG [[place] 7.5-325] 1 tab PO QID PRN 08/31/21 [History] Pantoprazole [Protonix] 40 mg PO DAILY 08/31/21 [History] Simvastatin [Zocor] 10 mg PO DAILY 08/31/21 [History] Morphine Sulfate ER [Ms Contin] 15 mg PO TID PRN 09/29/21 [History] Furosemide [Lasix] 40 mg PO DAILY 12/10/21 [History] Metoprolol Tartrate [Lopressor] 50 mg PO BID 12/10/21 [History] Potassium Chloride ER [K-Dur 20] 20 meq PO DAILY 12/10/21 [History] Ferrous Sulfate [Iron (65 MG Elemental)] 325 mg PO BID-W/MEALS #60 tab 12/15/21 [Rx] Follow up Appointment(s)/Referral(s): Jhonatan Katz MD [Primary Care Provider] - 1-2 Days Patient Instructions/Handouts: Gastrointestinal Bleeding (DC)
== END 2021-12-15 13:54 | disposition home or self-care (01) | DRG 378 ==
LOC: EC 10:20 → 4SSUR 17:12
PROVIDERS: ADMIT Family Medicine; ATTEND Family Medicine
PROC: 30233P1 Transfusion of Nonautologous Frozen Red Cells into Peripheral Vein, Percutaneous Approach (ICD-10-PCS; 2021-12-10)
PROC: 0DB78ZX Excision of Stomach, Pylorus, Via Natural or Artificial Opening Endoscopic, Diagnostic (ICD-10-PCS; principal; 2021-12-15 11:30)
PROC: 0DJD8ZZ Inspection of Lower Intestinal Tract, Via Natural or Artificial Opening Endoscopic (ICD-10-PCS; principal; 2021-12-15 11:30)
DX: K29.71 Gastritis, unspecified, with bleeding (principal); D61.818 Other pancytopenia; D62 Acute posthemorrhagic anemia; I48.20 Chronic atrial fibrillation, unspecified; R18.8 Other ascites; K44.9 Diaphragmatic hernia without obstruction or gangrene; E78.5 Hyperlipidemia, unspecified; G89.29 Other chronic pain; H91.90 Unspecified hearing loss, unspecified ear; M54.9 Dorsalgia, unspecified; I10 Essential (primary) hypertension; K74.60 Unspecified cirrhosis of liver; M19.90 Unspecified osteoarthritis, unspecified site; Z79.01 Long term (current) use of anticoagulants; Z79.899 Other long term (current) drug therapy; Z85.3 Personal history of malignant neoplasm of breast; Z86.73 Personal history of transient ischemic attack (TIA), and cerebral infarction without residual deficits; Z92.3 Personal history of irradiation
CPT/HCPCS: 36415; 36430; 43239; 45378; 80048; 80053; 82272; 85025; 85027; 85610; 85730; 86850; 86870; 86880; 86900; 86901; 86902; 86920; 88305; 96360; 96361; 99284